=== PATIENT | female | born 1980 | race Two or more races ===

== ENCOUNTER 2025-02-19 16:29 | Inpatient (IN) | payer MEDICAID, OTHER ==
[~2025-02-19] VITALS: Ht 157.5 cm; Wt 108.3 kg
[2025-02-19] MEDS: SODIUM CHLORIDE 0.9% 1,000 ML IVB ONE (16:45)
--- NOTE | 2025-02-19 16:46 | ED.PDOC ---
GI ASSESSMENT HPI Comments 44 y/o F, with PMHx of DM presents to the ED for CC of nausea and vomiting. Patient states, that she has been experiencing nausea and vomiting with associated symptoms or headache x1week. Patient relays, that she was recently diagnosed with DM and was prescribed Jardiance; unsure if symptoms are related to new Rx. Patient denies abdominal pain, diarrhea, fever, chills, or dysuria. No other associated symptoms, modifiers, recent injuries or sick contacts present at this time. 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 Family History Family History: Unknown Social History Smoker: Non-Smoker Alcohol: Denies ETOH Use Drugs: Denies Drug Use Lives In: Home Constitutional: denies: chills, diaphoresis, fatigue, fever, malaise, sweats, weakness, others EENTM: denies: blurred vision, double vision, ear bleeding, ear discharge, ear drainage, ear pain, ear ringing, eye pain, eye redness, hearing loss, mouth pain, mouth swelling, nasal discharge, nose bleeding, nose congestion, nose pain, photophobia, tearing, throat pain, throat swelling, voice changes, others Respiratory: denies: cough, hemoptysis, orthopnea, SOB at rest, shortness of breath, SOB with excertion, stridor, wheezing, others Cardiovascular: denies: chest pain, dizzy spells, diaphoresis, Dyspnea on exertion, edema, irregular heart beat, left arm pain, lightheadedness, palpitations, PND, syncope, others Gastrointestinal: reports: nausea, vomiting; denies: abdomen distended, abdominal pain, blood streaked bowels, constipated, diarrhea, dysphagia, difficulty swallowing, hematemesis, melena, poor appetite, poor fluid intake, r ectal bleeding, rectal pain, others Genitourinary: denies: abnormal vagina bleeding, burning, dyspareunia, dysuria, flank pain, frequency, hematuria, incontinence, pain, , vagina discharge, urgency, others Neurological: denies: dizziness, fainting, headache, left sided numbness, left sided weakness, numbness, paresthesia, pre-existing deficit, right sided numbness, right sided weakness, seizure, speech problems, tingling, tremors, weakness, others Musculoskeletal: denies: back pain, gout, joint pain, joint swelling, muscle pain, muscle stiffness, neck pain, others Integumetry: denies: bruises, change in color, change in hair/nails, dryness, laceration, lesions, lumps, rash, wounds, others Allergic/Immunocompromised: denies: Difficulty Healing, Frequent Infections, Hives, Itching, others Hematologic/Lymphatic: denies: anemia, blood clots, easy bleeding, easy bruising, swollen glands, others Endocrine: denies: excessive hunger, excessive sweating, excessive thirst, excessive urination, flushing, intolerance to cold, intolerance to heat, unexplained weight gain, unexplained weight loss, others Psychiatric: denies: anxiety, bipolar disorder, depression, hopeless, panic disorder, schizophrenia, sleepless, suicidal, others All Other Systems: Reviewed and Negative Physical Exam General Appearance: Moderate Distress HEENT: Normal ENT Inspection, Pharynx Normal, TMs Normal Neck: Full Range of Motion, Non-Tender, Normal, Normal Inspection Respiratory: Chest Non-Tender, Lungs Clear, No Accessory Muscle Use, No Respiratory Distress, Normal Breath Sounds Cardiovascular: No Edema, No JVD, No Murmur, No Gallop, Normal Peripheral Pulses, Regular Rate/Rhythm Breast Exam: Deferred Gastrointestinal: No Organomegaly, Non Tender, No Pulsatile Mass, Normal Bowel Sounds, Soft Genitalia: Deferred Pelvic: Deferred Rectal: Deferred Extremities: No calf tenderness, Normal capillary refill, Normal inspection, Normal range of motion, Non-tender, No pedal edema Musculoskeletal : Apperance: Normal Neurologic: Alert, piano case maker II-XII nml as Tested, Motor Weakness, Normal Affect, Normal Mood, No Sensory Deficits Cerebellar Function: Normal Reflexes: Normal Skin: Dry, Normal Color, Warm Lymphatic: No Adenopathy Was a procedure done? Was a procedure done?: No GI differential Dx Differential Diagnosis: Gastritis/PUD, Gastroenteritis, Electrolyte Imbalance, Food Poisoning, Bacterial, Viral X-Ray, Labs, Meds, VS Lab Test 02/19/25 18:15 02/19/25 17:55 02/19/25 17:03 Range/Units Urine Color Pending Urine Clarity Pending Urine pH Pending Urine Specific [place] Pending Urine Protein Pending Urine Ketones Pending Urine Blood Pending Urine Nitrite Pending Urine Bilirubin Pending Urine Urobilinogen Pending Urine Leukocyte Esterase Pending Urine RBC Pending Urine Microscopic WBC Pending Urine Squamous Epithelial Cells Pending Urine Bacteria Pending Urine Glucose Pending POC Glucose 115 H 70-106 mg/dl White Blood Count 12.2 H 4.4-10.8 10^3/uL Red Blood Count 4.99 4.0-5.20 10^6/uL Hemoglobin 15.5 12.2-16.2 g/dL Hematocrit 46.6 H 36.0-46.0 % Mean Corpuscular Volume 93.4 80.0-100.0 fL Mean Corpuscular Hemoglobin 31.2 28.0-32.0 pg Mean Corpuscular Hemoglobin Concent 33.4 32.0-36.0 g/dL Red Cell Distribution Width 12.6 11.8-14.3 % Platelet Count 209 140-450 10^3/uL Mean Platelet Volume 9.1 6.9-10.8 fL Neutrophils (%) (Auto) 62.7 37.0-80.0 % Lymphocytes (%) (Auto) 30.1 10.0-50.0 % Monocytes (%) (Auto) 6.4 0.0-12.0 % Eosinophils (%) (Auto) 0.5 0.0-7.0 % Basophils (%) (Auto) 0.3 0.0-2.0 % Neutrophils # (Auto) 7.7 1.6-8.6 10 ^3/uL Lymphocytes # (Auto) 3.7 0.4-5.4 10 ^3/uL Monocytes # (Auto) 0.8 0-1.3 10 ^3/uL Eosinophils # (Auto) 0.1 0-0.8 10 ^3/uL Basophils # (Auto) 0 0-0.2 10 ^3/uL Nucleated Red Blood Cells 0.2 % Sodium Level 143 136-145 mmol/L Potassium Level 3.7 3.5-5.1 mmol/L Chloride Level 107 98-107 mmol/L Carbon Dioxide Level 24 20-31 mmol/L Anion Gap 12 5-15 Blood Urea Nitrogen 11 9-23 mg/dL Creatinine 0.73 0.550-1.02 mg/dL Glomerular Filtration Rate Calc 104 >90 mL/min BUN/Creatinine Ratio 15.1 10.0-20.0 Serum Glucose 128 H 74-106 mg/dL Calcium Level 10.3 8.7-10.4 mg/dL Total Bilirubin 0.6 0.2-1.0 mg/dL Aspartate Amino Transferase (AST) 67 H 13-40 U/L Alanine Aminotransferase (ALT) 136 H 7-40 U/L Alkaline Phosphatase 116 46-116 U/L Total Protein 8.8 H 5.7-8.2 g/dL Albumin 4.7 3.2-4.8 g/dL Beta-Hydroxybutyric Acid 0.899 H < 0.4 mmol/L IV Hep-Lock has been established The patient was being given a bolus of normal saline at 1 L The CBC shows an elevated white blood cell count of 12.1 The patient's chemistry panel shows hyperglycemia as well as an elevated beta hydroxybutyric acid The patient was still having intractable vomiting The patient was being admitted at this time Time of 1ST Reevaluation: 17:20 Reevaluation 1ST: Unchanged Patient Education/Counseling: Diagnosis, Treatment, Prognosis Family Education/Counseling: No Family Present Departure 1 Departure Time of Disposition: 18:32 Impression: Primary Impression: Dehydration Additional Impression: Intractable vomiting Disposition: ADMITTED INPATIENT Admit to: Med Surg Condition: Fair Critical Care Note Critical Care Time?: No Stability Stability form required: No Heart Score Heart Score: Heart Score Response (Comments) Value History N/A 0 EKG N/A 0 Age N/A 0 Risk Factors N/A 0 Troponin N/A 0 Total 0 I personally scribed for NAGA YING MD ([email or web address]) on 02/19/25 at 16:46. Electronically submitted by Astrid Howell ([email or web address]). NAGA YING MD February 19, 2025 16:46
[2025-02-19 17:17] LABS: Basophils # (auto) 0 10 ^3/uL (0-0.2); Basophils % (auto) 0.3 % (0.0-2.0); Eosinophils # (auto) 0.1 10 ^3/uL (0-0.8); Eosinophils % (auto) 0.5 % (0.0-7.0); Hematocrit 46.6 % (36.0-46.0); Hemoglobin 15.5 g/dL (12.2-16.2); Lymphocytes # (auto) 3.7 10 ^3/uL (0.4-5.4); Lymphocytes % (auto) 30.1 % (10.0-50.0); Mean Corpuscular Hemoglobin 31.2 pg (28.0-32.0); Mean Corpuscular Hgb Conc. 33.4 g/dL (32.0-36.0); Mean Corpuscular Volume 93.4 fL (80.0-100.0); Monocytes # (auto) 0.8 10 ^3/uL (0-1.3); Monocytes % (auto) 6.4 % (0.0-12.0); Neutrophils # (auto) 7.7 10 ^3/uL (1.6-8.6); Neutrophils % (auto) 62.7 % (37.0-80.0); Nucleated Red Blood Cells % 0.2 %; Platelet Count (auto) 209 10^3/uL (140-450); Red Blood Cells 4.99 10^6/uL (4.0-5.20); Red Cell Distribution Width 12.6 % (11.8-14.3); White Blood Cell 12.2 10^3/uL (4.4-10.8)
[2025-02-19 17:40] LABS: Albumin 4.7 g/dL (3.2-4.8); Alkaline Phosphatase 116 U/L (46-116); Anion Gap 12 (5-15); BUN/Creatinine Ratio 15.1 (10.0-20.0); Bilirubin, Total 0.6 mg/dL (0.2-1.0); Blood Urea Nitrogen 11 mg/dL (9-23); Calcium 10.3 mg/dL (8.7-10.4); Carbon Dioxide 24 mmol/L (20-31); Chloride 107 mmol/L (98-107); Potassium 3.7 mmol/L (3.5-5.1); Sodium 143 mmol/L (136-145)
[2025-02-19 17:45] LABS: Alanine Aminotransferase 136 U/L (7-40); Aspartate Aminotransferase 67 U/L (13-40); Glucose 128 mg/dL (74-106); Total Protein 8.8 g/dL (5.7-8.2)
[2025-02-19 18:43] LABS: Urine Bacteria FEW /hpf (None Seen); Urine Blood Negative /uL (Negative); Urine Clarity Clear (Clear); Urine Color Yellow (Yellow); Urine Mucus FEW (None Seen); Urine Protein, UAD TRACE (Negative); Urine Specific Gravity 1.042 (1.001-1.035); Urine Squamous Epithelial Cell FEW /hpf (<5); Urine Urobilinogen Normal (Negative); Urine WBC 5 /HPF (0-5)
[2025-02-19] MEDS ORDERED: DEXTROSE (50%) 50ML SYRG IV PRN (21:30)
[2025-02-19] MEDS ORDERED: DOCUSATE SOD 100 MG CAP PO PRN (21:30)
[2025-02-19] MEDS: cefTRIAXone 1GM/50ML D5W 50 ML IV ONE (21:55)
[2025-02-19] MEDS: ONDANSETRON HCL 4 MG/2 ML VIAL IV ONE (21:55)
[2025-02-19] MEDS: ACCU-CHEK COMFORT CURVE STRIP VI SCH (22:00)
[2025-02-19] MEDS: InsuLIN REG 1unit/0.01ml Soln (100units/ml) SC SCH (22:00)
[2025-02-19] MEDS: SODIUM CHLOR 0.9% PF (SALINE LOCK) 10ML VIAL/SYR IV SCH (22:05)
--- NOTE | 2025-02-19 23:28 | DVHHP2 ---
History of Present Illness Reason for Visit: Intractable nausea and vomiting History of Present Illness The patient is a 44-year-old female with past medical history of diabetes mellitus who presented to [facility] ED with complaint of intractable nausea and vomiting. Patient reports symptoms progressively get wor se with headache, currently on newly prescribed Jardiance for diabetes; unsure if symptoms are related to the new prescription. Patient was seen and evaluated in the ED, laboratory data shows WBC 12.2, platelets 209, sodium 143, potassium three point seven, BUN 11, creatinine 0.73, glucose 128, AST 67, ALT 136, beta- Hydroxybutyric Acid 0.899. Patient was started on IV antibiotic regimen Rocephin, given IV Zofran, please see medication orders section in the computer. On my assessment, patient denied chest pain, no headache, no dizziness, no diaphoresis, no shortness of breaths, no abdominal pain, no nausea or vomiting at this moment, no fever, no chills. Patient was admitted for further evaluation and medical management. Past Medical History DM Past Surgical History Denies all surgeries Family History Reviewed, noncontributory to the management of this case. Past Social History The patient lives at home, denies smoking, alcohol or illicit drugs abuse. Review of Systems Constitutional: No: Fever, Chills, Sweats, Weakness, Malaise, Other Eyes: No: Pain, Vision change, Conjunctivae inflammation, Eyelid inflammation, Other, Redness ENT: No: Ear pain, Ear discharge, Nose pain, Nose discharge, Nose congestion, Mouth pain, Mouth swelling, Throat pain, Throat swelling, Other Respiratory: No: Cough, Dry, Shortness of breath, SOB with excertion, Wheezing, Hemoptysis, Pleuritic Pain, Sputum, Wheezing, Other Cardiovascular: No: Chest Pain, Palpitations, Orthopnea, Paroxysmal Noc. Dyspnea, Edema, Lt Headedness, Other Gastrointestinal: Nausea, Vomiting; No: Abdominal Pain, Diarrhea, Constipation, Melena, Hematochezia, Other Genitourinary: No Dysuria, No Frequency, No Incontinence, No Hematuria, No Retention, No Other Musculoskeletal: No: other, neck pain, shoulder pain, arm pain, back pain, hand pain, leg pain, foot pain Skin: No: Rash, Lesions, Jaundice, Bruising, Other Neurological: No: Weakness, Numbness, Incoordination, Change in speech, Confu delilah, Seizures, Other Allergies: Coded Allergies: NO KNOWN ALLERGIES (Unverified , 02/19/25) Medications Current Medications Medications Dose Ordered Sig/Mague Route Start Time Stop Time Status Last Admin Dose Admin Ceftriaxone Sodium 50 ml @ 100 mls/hr DAILY@09 IV 02/20/25 09:00 Diagnostic Test (Pha) 1 strip ACHS 02/19/25 22:00 02/19/25 22:00 1 STRIP Insulin Human Regular ACHS SC 02/19/25 22:00 Dextrose 50 ml UD PRN IV 02/19/25 21:30 Sodium Chloride 10 ml Q8HR IV 02/19/25 22:00 02/19/25 22:05 10 ML Ondansetron HCl 4 mg Q4HP PRN IV 02/19/25 21:30 Docusate Sodium 100 mg BIDPRN PRN PO 02/19/25 21:30 Acetaminophen 650 mg Q6HP PRN PO 02/19/25 21:30 Exam Vital Signs Vital Signs Date Time Temp Pulse Resp B/P (MAP) Pulse Ox O2 Delivery O2 Flow Rate FiO2 02/19/25 18:33 97.1 57 20 100/55 (70) 100 97.1 General Appearance: Alert, Oriented X3, Cooperative, No acute distress HEENT: Atraumatic, PERRLA, EOMI, Mucous membr. moist/pink Respiratory: Clear to auscultation, Normal air movement Cardiovascular: Regular rate, Normal S1, Normal S2, No murmurs Abdominal: Normal bowel sounds, Soft, No tenderness, No hepatospenomegaly, No masses Extremities: No clubbing, No cyanosis, No edema, Normal pulses, No tenderness/swelling Skin: No rashes, No breakdown, No significant lesion Neuro: Normal gait, Normal speech, Strength at 5/5 X4 ext, Normal tone, Sensation intact, Cranial nerves 3-12 NL, Reflexes 2+ Psych/Mental Status: Mental status NL, Mood NL Labs/Xrays Labs Test 02/19/25 18:15 02/19/25 17:55 02/19/25 17:03 Range/Units Urine Color Yellow Yellow Urine Clarity Clear Clear Urine pH 5.0 5.0-9.0 Urine Specific [place] 1.042 H 1.001-1.035 Urine Protein Trace H Negative Urine Ketones 2+ H Negative Urine Blood Negative Negative /uL Urine Nitrite Negative Negative Urine Bilirubin Negative Negative Urine Urobilinogen Normal Negative mg/dL Urine Leukocyte Esterase Negative Negative /uL Urine RBC 1 0 - 4 /hpf Urine Microscopic WBC 5 0-5 /HPF Urine Squamous Epithelial Cells Few <5 /hpf Urine Bacteria Few H None Seen /hpf Urine Mucus Few None Seen Urine Glucose 4+ H Normal mg/dL POC Glucose 115 H 70-106 mg/dl White Blood Count 12.2 H 4.4-10.8 10^3/uL Red Blood Count 4.99 4.0-5.20 10^6/uL Hemoglobin 15.5 12.2-16.2 g/dL Hematocrit 46.6 H 36.0-46.0 % Mean Corpuscular Volume 93.4 80.0-100.0 fL Mean Corpuscular Hemoglobin 31.2 28.0-32.0 pg Mean Corpuscular Hemoglobin Concent 33.4 32.0-36.0 g/dL Red Cell Distribution Width 12.6 11.8-14.3 % Platelet Count 209 140-450 10^3/uL Mean Platelet Volume 9.1 6.9-10.8 fL Neutrophils (%) (Auto) 62.7 37.0-80.0 % Lymphocytes (%) (Auto) 30.1 10.0-50.0 % Monocytes (%) (Auto) 6.4 0.0-12.0 % Eosinophils (%) (Auto) 0.5 0.0-7.0 % Basophils (%) (Auto) 0.3 0.0-2.0 % Neutrophils # (Auto) 7.7 1.6-8.6 10 ^3/uL Lymphocytes # (Auto) 3.7 0.4-5.4 10 ^3/uL Monocytes # (Auto) 0.8 0-1.3 10 ^3/uL Eosinophils # (Auto) 0.1 0-0.8 10 ^3/uL Basophils # (Auto) 0 0-0.2 10 ^3/uL Nucleated Red Blood Cells 0.2 % Sodium Level 143 136-145 mmol/L Potassium Level 3.7 3.5-5.1 mmol/L Chloride Level 107 98-107 mmol/L Carbon Dioxide Level 24 20-31 mmol/L Anion Gap 12 5-15 Blood Urea Nitrogen 11 9-23 mg/dL Creatinine 0.73 0.550-1.02 mg/dL Glomerular Filtration Rate Calc 104 >90 mL/min BUN/Creatinine Ratio 15.1 10.0-20.0 Serum Glucose 128 H 74-106 mg/dL Calcium Level 10.3 8.7-10.4 mg/dL Total Bilirubin 0.6 0.2-1.0 mg/dL Aspartate Amino Transferase (AST) 67 H 13-40 U/L Alanine Aminotransferase (ALT) 136 H 7-40 U/L Alkaline Phosphatase 116 46-116 U/L Total Protein 8.8 H 5.7-8.2 g/dL Albumin 4.7 3.2-4.8 g/dL Beta-Hydroxybutyric Acid 0.899 H < 0.4 mmol/L Assessment/Plan Assessment/Plan Intractable nausea and vomiting Leukocytosis, unspecified Elevated liver enzymes Plan 1. Admit to med surge unit 2. Breathing treatment 3. Pain control management 4. IV antibiotic management 5. Management of fluids and electrolytes 6. Consultation for hospitalist 7. Diagnostic test abdomen CT 8. DVT prophylaxis on SCDs 9. Repeat labs CBC, CMP in a.m. 10. Home medication reviewed 11. Continue with current medical management 12. Treatment plan discussed with patient and RN. Patient verbalized understanding. Plan discussed with: Patient, Other (RN) My Orders Orders - TOBY LOUIE DNP Procedure Category Date Status Time Ceftriaxone 1gm/50ml PHA 02/20/25 In Process D5w (Rocephin) 09:00 Glucose Blood PHA 02/19/25 In Process (Accu-Chek Comfort 22:00 Insulin R (Human) PHA 02/19/25 In Process (Insulin R) 22:00 Dextrose 50% Syringe PHA 02/19/25 In Process 21:30 Allergies FAROOQ 02/19/25 In Process 21:27 Code Status CODE 02/19/25 Transmitted 21:27 Sodium Chloride Lock PHA 02/19/25 In Process (Saline Lock Ns) 22:00 Oxygen Per Hour RT 02/19/25 Transmitted 21:27 Ondansetron Hcl PHA 02/19/25 In Process (Zofran) 21:30 Docusate Sodium PHA 02/19/25 In Process Capsule (Colace 21:30 Complete Blood Count LAB 02/20/25 Verified 04:00 Comprehensive LAB 02/20/25 Verified Metabolic Panel 04:00 Condition: Serious FAROOQ 5/1/25 In Process 21:27 Acetaminophen Tablet PHA 02/19/25 In Process (Tylenol Tablet) 21:30 Clear Liq Diet DIET 02/20/25 Transmitted Breakfast Bedrest With Bathroom FAROOQ 02/19/25 In Process Privileg 21:27 Sequential FAROOQ 02/19/25 In Process Compression Device Problem List: (1) Intractable nausea and vomiting (2) Leukocytosis, unspecified (3) Elevated liver enzymes Date of Service: February 19, 2025 Billing Provider: TOBY LOUIE DNP Common Visit Codes: [id number] INP/OBS CARE (MOD) TOBY LOUIE DNP February 19, 2025 23:28
[2025-02-19] MEDS ORDERED: NITROGLYCERIN 0.4 MG SL TAB SL PRN (23:30)
[2025-02-19] MEDS ORDERED: MORPHINE SULFATE INJ 2 MG/ml SYRG IV PRN (23:30)
[2025-02-19] MEDS: ACETAMINOPHEN 325 MG TAB PO PRN (23:42)
[2025-02-20] VITALS (7 sets, daily range): BP systolic 92–116; BP diastolic 49–67; PULSE 53–68; RESP 16–18; TEMP 97.6–98.1; O2SAT 94–99
[2025-02-20 04:02] LABS: Basophils # (auto) 0.1 10 ^3/uL (0-0.2); Basophils % (auto) 0.5 % (0.0-2.0); Eosinophils # (auto) 0 10 ^3/uL (0-0.8); Hematocrit 41.2 % (36.0-46.0); Hemoglobin 14.1 g/dL (12.2-16.2); Lymphocytes # (auto) 2.6 10 ^3/uL (0.4-5.4); Lymphocytes % (auto) 22.5 % (10.0-50.0); Mean Corpuscular Hemoglobin 31.3 pg (28.0-32.0); Mean Corpuscular Hgb Conc. 34.3 g/dL (32.0-36.0); Mean Corpuscular Volume 91.3 fL (80.0-100.0); Monocytes # (auto) 0.6 10 ^3/uL (0-1.3); Monocytes % (auto) 5.3 % (0.0-12.0); Neutrophils # (auto) 8.4 10 ^3/uL (1.6-8.6); Neutrophils % (auto) 71.7 % (37.0-80.0); Platelet Count (auto) 218 10^3/uL (140-450); Red Blood Cells 4.52 10^6/uL (4.0-5.20); White Blood Cell 11.7 10^3/uL (4.4-10.8)
[2025-02-20 04:15] LABS: Alkaline Phosphatase 93 U/L (46-116); Anion Gap 7 (5-15); BUN/Creatinine Ratio 19.4 (10.0-20.0); Blood Urea Nitrogen 12 mg/dL (9-23); Calcium 9.8 mg/dL (8.7-10.4); Carbon Dioxide 24 mmol/L (20-31); Glucose 100 mg/dL (74-106); Potassium 4.3 mmol/L (3.5-5.1); Sodium 141 mmol/L (136-145); Total Protein 7.8 g/dL (5.7-8.2)
[2025-02-20 04:16] LABS: Albumin 4.2 g/dL (3.2-4.8); Bilirubin, Total 0.5 mg/dL (0.2-1.0)
[2025-02-20 04:19] LABS: Alanine Aminotransferase 105 U/L (7-40); Aspartate Aminotransferase 50 U/L (13-40); Chloride 110 mmol/L (98-107)
[2025-02-20] MEDS: PANTOPRAZOLE 40 MG/10 ML VIAL INJ IV ONE (06:09)
[2025-02-20] MEDS: cefTRIAXone 1GM/50ML D5W 50 ML IV SCH (09:35)
--- NOTE | 2025-02-20 11:09 | DVHPNRES ---
Progress Note Date Seen: February 20, 2025 Resident Creating Document: SUDHA JOYNER RESIDENT Medical Necessity Reason Pt with a Central, PICC or Fol: No Subjective Review of Systems Patient seen and examined at bedside Patient is complaining of nausea, vomiting Denied fever, chills, abdominal pain Regular bowel movement No any other new complaints ROS: Constitutional: Denies weight loss, fever and chills. HEENT: Denies changes in vision and hearing. Respiratory: Denies shortness of breath and cough Cardiovascular: Denies chest discomfort or palpitations GI: Complaining of nausea and vomiting : Denies dysuria and urinary frequency. Musculoskeletal: Denies myalgias and joint pain Skin: Denies rash and pruritus. Neurological: Denies dizziness, headache, vision or hearing problems Objective vital signs Vital Sign Date Time Temp Pulse Resp B/P (MAP) Pulse Ox O2 Delivery O2 Flow Rate FiO2 02/20/25 09:00 98.1 58 18 104/61 (75) 96 98.1 02/20/25 00:06 Room Air medications Current Medications Medications Dose Ordered Sig/Mague Route Start Time Stop Time Status Last Admin Dose Admin Ceftriaxone Sodium 50 ml @ 100 mls/hr DAILY@09 IV 02/20/25 09:00 02/20/25 09:35 100 MLS/HR Diagnostic Test (Pha) 1 strip ACHS 02/19/25 22:00 02/20/25 07:53 1 STRIP Insulin Human Regular ACHS SC 02/19/25 22:00 Dextrose 50 ml UD PRN IV 02/19/25 21:30 Sodium Chloride 10 ml Q8HR IV 02/19/25 22:00 02/20/25 06:26 10 ML Ondansetron HCl 4 mg Q4HP PRN IV 02/19/25 21:30 Docusate Sodium 100 mg BIDPRN PRN PO 02/19/25 21:30 Acetaminophen 650 mg Q6HP PRN PO 02/19/25 21:30 02/19/25 23:42 650 MG Nitroglycerin 0.4 mg Q5MINP PRN SL 02/19/25 23:30 Morphine Sulfate 2 mg Q30M PRN IV 02/19/25 23:30 Acetaminophen/ Hydrocodone Bitart 1 tab Q6HPRN PRN PO 02/20/25 00:15 Pantoprazole Sodium 40 mg DAILY IV 02/21/25 10:00 Sodium Chloride 1,000 ml @ 125 mls/hr Q8H IV 02/20/25 10:15 UNV Examination Physical examination Morbidly obese female, BMI 43.5 kg/m2 General: Patient alert and oriented in person, place and time. Patient following commands. HEENT: Normocephalic, atraumatic, moist mucous membranes Respiratory/pulmonary: Clear lungs bilaterally, vesicular murmurs present in almost all lung lópez, no associated crackles or wheezes. Cardiovascular: Normal heart sounds S1 and S2 with no associated murmurs Abdomen: Abdomen nondistended, there is no pain to palpation in any of the abdominal quadrants, no palpable masses. Extremities: There is no peripheral edema present at the lower extremities. Peripheral Pulses: 3+ Radial (R). 3+ Radial (L). 3+ Dorsalis pedis (R). 3+ Dorsalis pedis(L) Skin: No rashes or pruritus, there is no sacral edema present at this time. Neurological: Intact cranial nerves with no focal neurologic deficits laboratory and microbiology Laboratory Tests 02/20/25 03:30 Test 02/20/25 03:30 Range/Units Serum Glucose 100 74-106 mg/dL Labs and/or images reviewed: Labs reviewed by me, Image(s) reviewed by me Problem List/Assessment/Plan Problem List/Assessment/Plan Sepsis due to UTI Severe dehydration -IV fluid NS 125/mL/hour -IV ceftriaxone -UA showed few bacteria, high WBCs, -pending urine culture Hyperthyroidism ? Clinical versus subclinical -TSH 0.41, pending free T4 Hepatic steatosis -continue to monitor liver function -liver ultrasound showed hepatic steatosis -counseled on lifestyle modification, advised on weight loss, regular exercise, healthy diet options Diabetes mellitus type 2 HB A1c 8.9% -home medication: Jardiance 10 mg p.o. daily, hold given underlying UTI Cholelithiasis without evidence of acute cholecystitis -surgical consultation Mild right hydronephrosis -stable. Not worsening kidney function. Continue monitor Morbid obesity BMI 43.5 kg/m2 -patient counseled on lifestyle modifications such as regular exercise early started to 40 minute, healthy diet options, low-fat diet, high-protein diet, low-carbohydrate index poor. PUD Prophylaxis: Protonix DVT prophylaxis:Patient is ambulatory Goals of care discussed for 20 minutes Plan Discussed with Dr Acosta Plan discussed with: Patient, Other (RN) My Orders My Orders Orders - SUDHA JOYNER RESIDENT Procedure Category Date Status Time Drug Screen LAB 02/20/25 Logged 08:17 Test, Urine LAB 02/20/25 Logged 08:17 Sodium Chloride 0.9% PHA 02/20/25 Logged 10:15 LIVER US 02/20/25 Logged 11:03 Chest Xray 1 View XY 02/20/25 Transmitted 11:03 Hemoglobin A1c LAB 02/20/25 In Process 11:03 Thyroid Stimulating LAB 02/20/25 In Process Hormone 11:03 Lipid Panel LAB 02/20/25 In Process 11:03 Lipase LAB 02/20/25 In Process 11:03 Electrocardigram EKG 02/20/25 Logged 11:06 Lipid Panel LAB 02/20/25 Logged 11:08 Addendum Addendum Addendum I was physically present for the clay portions of the service provided to patient by THE RESIDENT. I have reviewed the documentation, discussed the case with resident and agree with the resident's documentation except as noted. Also the patient's clinical case was discussed with the patient's nurse. This medical document was created using an electronic medical record system with computerized dictation system. Although this document has been carefully reviewed, there might still be some phonetic and typographical errors. These areas are purely typographical due to imperfections of the software programs, and do not reflect any compromise in the patient's medical care. Late signature. Date of Service: February 20, 2025 Billing Provider: FRANKLIN ACOSTA MD Common Visit Codes: [id number] INP/OBS CARE(HIGH) Secondary Visit Codes: [id number] CARE PLAN 30 MINUTES (20 minutes) SUDHA JOYNER RESIDENT February 20, 2025 11:09 FRANKLIN ACOSTA MD February 21, 2025 10:31
[2025-02-20 11:35] LABS: Triglycerides 72 mg/dL (< 150)
[2025-02-20 11:36] LABS: LDL Cholesterol 86 mg/dL (< 100)
[2025-02-20 11:38] LABS: Cholesterol 133 mg/dL (< 200); HDL Cholesterol 40 mg/dL (40-59)
[2025-02-20 11:51] LABS: Lipase 31 U/L (12-53)
[2025-02-20 12:43] LABS: Amphetamine Screen, Urine Neg (NEGATIVE); Barbiturate Scree,Urine Neg (NEGATIVE); Benzodiazephine Screen, Urine Neg (NEGATIVE); Cannabinoid Screen, Urine Neg (NEGATIVE); Cocaine Screen, Urine Neg (NEGATIVE); Opiate Scree,Urine Neg (NEGATIVE); Phencyclidine Screen, Urine Neg (NEGATIVE)
--- NOTE | 2025-02-20 13:30 | DVH ---
EXAM: XY CHEST XRAY 1 VIEW Indication: n/v ;. Technique: Single frontal view of the chest was obtained Comparison: None FINDINGS: Lines and Tubes: None Lungs: No focal consolidation. Pleura: No effusion. No pneumothorax. Cardiomediastinal contours: Unremarkable Bones: No acute osseous abnormality. IMPRESSION: No acute cardiopulmonary disease.
--- NOTE | 2025-02-20 13:37 | DVH ---
INDICATION: elevated liver enyme TECHNIQUE: Multiple real-time sonographic images were obtained of the right upper quadrant and left k idney. COMPARISON: None FINDINGS: The liver demonstrates increased echotexture without focal mass lesions. The liver measures 16 cm. There is no intrahepatic or extrahepatic ductal dilatation. The common duct measures 6 mm. Gallstones.i The gallbladder wall measures 2 mm and is within normal limits. The right kidney measures 10.2 cm. The right kidney is normal in contour, size, and shape. The echog enicity is normal. Mild right hydronephrosis. There is a right renal cyst measuring up to 2.2 cm. Lef t kidney was imaged for comparison and also demonstrates left renal cysts measuring up to 1.7 cm. Lef t kidney measures 12.2 cm. The pancreas is not well visualized due to overlying bowel gas. IMPRESSION: Hepatic steatosis. Cholelithiasis without sonographic evidence of acute cholecystitis. Suggestion of mild right hydronephrosis.
[2025-02-20 15:10] LABS: Hepatitis B Surface Antigen Negative (Negative)
[2025-02-20 15:31] LABS: Hepatitis C Antibody Negative (Negative)
[2025-02-20] MEDS: ONDANSETRON HCL 4 MG/2 ML VIAL IV PRN (15:51)
[2025-02-20] MEDS: SODIUM CHLORIDE 0.9% 1,000 ML IV SCH (15:51)
[2025-02-20] MEDS: ENOXAPARIN SOD 40 MG/0.4 ML SYRINGE SC ONE (17:06)
[2025-02-20 17:58] LABS: INR 1.04 (0.9-1.15); Partial Thromboplastin Time 27.3 SEC (24.5-34.5)
[2025-02-21] VITALS (8 sets, daily range): BP systolic 96–131; BP diastolic 51–88; PULSE 51–81; RESP 16–18; TEMP 97.9–98.7; O2SAT 0–100
[2025-02-21 05:42] LABS: Basophils # (auto) 0 10 ^3/uL (0-0.2); Basophils % (auto) 0.6 % (0.0-2.0); Eosinophils # (auto) 0.1 10 ^3/uL (0-0.8); Eosinophils % (auto) 0.8 % (0.0-7.0); Hematocrit 39.9 % (36.0-46.0); Hemoglobin 13.8 g/dL (12.2-16.2); Lymphocytes # (auto) 2.4 10 ^3/uL (0.4-5.4); Lymphocytes % (auto) 30.4 % (10.0-50.0); Mean Corpuscular Hemoglobin 31.5 pg (28.0-32.0); Mean Corpuscular Hgb Conc. 34.5 g/dL (32.0-36.0); Mean Corpuscular Volume 91.3 fL (80.0-100.0); Monocytes # (auto) 0.5 10 ^3/uL (0-1.3); Monocytes % (auto) 6.9 % (0.0-12.0); Neutrophils # (auto) 4.9 10 ^3/uL (1.6-8.6); Neutrophils % (auto) 61.3 % (37.0-80.0); Platelet Count (auto) 190 10^3/uL (140-450); Red Blood Cells 4.37 10^6/uL (4.0-5.20); Red Cell Distribution Width 12.7 % (11.8-14.3)
[2025-02-21] MEDS ORDERED: EMPA1TAB PO (05:54)
[2025-02-21 05:57] LABS: Potassium 3.5 mmol/L (3.5-5.1); Sodium 142 mmol/L (136-145)
[2025-02-21 05:58] LABS: Anion Gap 9 (5-15); Calcium 9.6 mg/dL (8.7-10.4); Carbon Dioxide 25 mmol/L (20-31)
[2025-02-21 06:04] LABS: BUN/Creatinine Ratio 16.7 (10.0-20.0); Blood Urea Nitrogen 11 mg/dL (9-23)
[2025-02-21 06:12] LABS: Chloride 108 mmol/L (98-107); Glucose 107 mg/dL (74-106)
[2025-02-21] MEDS: ENOXAPARIN SOD 40 MG/0.4 ML SYRINGE SC SCH (08:57)
[2025-02-21] MEDS: PANTOPRAZOLE 40 MG/10 ML VIAL INJ IV SCH (08:57)
--- NOTE | 2025-02-21 09:33 | DVHINCON2 ---
Date of service: February 21, 2025 Reason for Consultation abdominal pain, cholelithiasis History of Present Illness History Source: Patient, MD Notes Exam Limitations: No limitations HPI 44 year old female presented to the ED for evaluation of abdominal pain. patient states she has right upper quadrant pain associated with nausea an vomiting for the past week. Home Meds Reported Medications Empagliflozin (Jardiance) 10 Mg Tab, 10 MG PO DAILY, TAB 02/21/25 Chief Complaint of Abdominal/F: Abdominal pain, Vomiting, Nausea Location of Abdominal Onset: RUQ Past Medical History Cardiac: No pertinent Hx Pulmonary: No pertinent Hx Central Nervous System: No pertinent Hx GI: No pertinent Hx Hemotology/Oncology: No pertinent Hx Hepatobiliary: No pertinent Hx Psychiatric: No pertinent Hx Musculoskeletal: No pertinent Hx Rheumotologic: No pertinent Hx Infectious Disease: No peritnent Hx ENT: No pertinent Hx Renal/: No pertinent Hx Endocrine: NIDDM Dermatology: No pertinent Hx Past Surgical History: No pertinent Hx Patient Family History: Patient reports no known family medical history. Smoker: No Hx (Negative) Alocohol: None Drugs: None Lives with: With family Review of Systems Constitutional: No symptom reported Ears, Nose, & Throat: No symptom reported Eyes: No symptom reported Pulmonary/Respiratory: No symptom reported Cardiovascular: No symptom reported Gastrointestinal: Nausea, Vomiting, Abdominal Pain Genitourinary: No symptom reported Musculoskeletal: No symptom reported Skin: No symptom reported Psychiatric: No symptom reported Endocrine: No symptom reported Hemotologic/Lymphatic: No symptom reported H&P Exam Vital Signs Vital Signs Date Time Temp Pulse Resp B/P (MAP) Pulse Ox O2 Delivery O2 Flow Rate FiO2 02/21/25 08:57 98.7 65 17 98/51 (67) 0 98.7 02/20/25 01:15 Room Air* 0 21 General Appeara: Well developed, Well nourished, Normal Appearance, Mild distress, Obese Head Exam: Normal inspection Neck Exam: Normal inspection Eye Exam: bilateral eye Normal inspection, bilateral eye PERRL Nasal Exam: Normal inspection Pulmonary/Respiratory: Normal inspection, Normal breath sounds Cardiovascular/Chest: Normal inspection, Regular rate, Normal Rhythm Abdominal Pain Onset Location: RUQ Rectal Exam: Deferred [employer] Exam: Normal speech Neuro/Mental St: Alert, Oriented Appearance: Appropriate appearance Eye contact/ Speech: Cooperative, Good eye contact, Normal speech Thoughts/Psych: Normal thought pattern Skin Exam: Normal inspection, Normal color, Warm/dry Labs/Xrays Labs Test 02/21/25 06:00 02/21/25 04:59 02/20/25 17:24 02/20/25 16:20 Range/Units POC Glucose 112 H 70-106 mg/dl White Blood Count 8.0 # 4.4-10.8 10^3/uL Red Blood Count 4.37 4.0-5.20 10^6/uL Hemoglobin 13.8 12.2-16.2 g/dL Hematocrit 39.9 36.0-46.0 % Mean Corpuscular Volume 91.3 80.0-100.0 fL Mean Corpuscular Hemoglobin 31.5 28.0-32.0 pg Mean Corpuscular Hemoglobin Concent 34.5 32.0-36.0 g/dL Red Cell Distribution Width 12.7 11.8-14.3 % Platelet Count 190 140-450 10^3/uL Mean Platelet Volume 9.3 6.9-10.8 fL Neutrophils (%) (Auto) 61.3 37.0-80.0 % Lymphocytes (%) (Auto) 30.4 10.0-50.0 % Monocytes (%) (Auto) 6.9 0.0-12.0 % Eosinophils (%) (Auto) 0.8 0.0-7.0 % Basophils (%) (Auto) 0.6 0.0-2.0 % Neutrophils # (Auto) 4.9 1.6-8.6 10 ^3/uL Lymphocytes # (Auto) 2.4 0.4-5.4 10 ^3/uL Monocytes # (Auto) 0.5 0-1.3 10 ^3/uL Eosinophils # (Auto) 0.1 0-0.8 10 ^3/uL Basophils # (Auto) 0 0-0.2 10 ^3/uL Nucleated Red Blood Cells 0.0 % Sodium Level 142 136-145 mmol/L Potassium Level 3.5 3.5-5.1 mmol/L Chloride Level 108 H 98-107 mmol/L Carbon Dioxide Level 25 20-31 mmol/L Anion Gap 9 5-15 Blood Urea Nitrogen 11 9-23 mg/dL Creatinine 0.66 0.550-1.02 mg/dL Glomerular Filtration Rate Calc 111 >90 mL/min BUN/Creatinine Ratio 16.7 10.0-20.0 Serum Glucose 107 H 74-106 mg/dL Calcium Level 9.6 8.7-10.4 mg/dL Prothrombin Time 11.0 9.3-11.8 sec Prothrombin Time INR 1.04 0.9-1.15 Activated Partial Thromboplast Time 27.3 24.5-34.5 SEC Free Thyroxine (T4) Calculated 1.02 0.89-1.76 ng/dL Test 02/20/25 14:08 02/20/25 08:22 02/20/25 03:30 02/19/25 18:15 Range/Units Hepatitis B Surface Antigen Negative Negative Hepatitis C Antibody Negative Negative Urine Test Negative Negative Urine Opiates Screen Neg NEGATIVE Urine Fentanyl Screen Neg NEGATIVE Urine Barbiturates Screen Neg NEGATIVE Urine Phencyclidine Screen Neg NEGATIVE Urine Amphetamines Screen Neg NEGATIVE Urine Benzodiazepines Screen Neg NEGATIVE Urine Cocaine Screen Neg NEGATIVE Urine Cannabinoids Screen Neg NEGATIVE Hemoglobin A1c 8.9 H <5.7 % A1C Total Bilirubin 0.5 0.2-1.0 mg/dL Aspartate Amino Transferase (AST) 50 H 13-40 U/L Alanine Aminotransferase (ALT) 105 H 7-40 U/L Alkaline Phosphatase 93 46-116 U/L Total Protein 7.8 5.7-8.2 g/dL Albumin 4.2 3.2-4.8 g/dL Triglycerides Level 72 < 150 mg/dL Cholesterol Level 133 < 200 mg/dL LDL Cholesterol 86 < 100 mg/dL HDL Cholesterol 40 40-59 mg/dL Lipase 31 12-53 U/L Thyroid Stimulating Hormone (TSH) 0.41 L 0.55-4.78 uIU/mL Urine Color Yellow Yellow Urine Clarity Clear Clear Urine pH 5.0 5.0-9.0 Urine Specific [place] 1.042 H 1.001-1.035 Urine Protein Trace H Negative Urine Ketones 2+ H Negative Urine Blood Negative Negative /uL Urine Nitrite Negative Negative Urine Bilirubin Negative Negative Urine Urobilinogen Normal Negative mg/dL Urine Leukocyte Esterase Negative Negative /uL Urine RBC 1 0 - 4 /hpf Urine Microscopic WBC 5 0-5 /HPF Urine Squamous Epithelial Cells Few <5 /hpf Urine Bacteria Few H None Seen /hpf Urine Mucus Few None Seen Urine Glucose 4+ H Normal mg/dL Test 02/19/25 17:03 Range/Units Beta-Hydroxybutyric Acid 0.899 H < 0.4 mmol/L Microbiology Date/Time Source Procedure Growth Status 02/20/25 08:22 Voided Urine Urine Culture - Preliminary Resulted Assessment/Plan Problem List: (1) Cholelithiasis (2) Obese Primary Diagnosis cholelithiasis Plan positive Henriquez sign on exam patient states pain is constant and she continues to vomit Plan: Laparoscopic possibly open cholecystectomy tomorrow am operation risks and complications explained to patient in detail patient would like to proceed with surgery Plan discussed with: Patient, Other (Dr. chowdhury) Visit Coding Surgery Date of Service if different f: February 21, 2025 Billing Provider: CLAUDIA CHOWDHURY MD Surgery Visit Codes: [id number] - INP CONSULT <80 MIN JORDAN NOLAN NP February 21, 2025 09:33
[2025-02-21] MEDS: HYDROcodone-ACET 5/325MG TAB PO PRN (14:30)
--- NOTE | 2025-02-21 18:37 | DVHPN2 ---
Subjective in bed feeling well Changes from previous H/P or p: No Changes Eyes: No Pain, No Vision change, No Conjunctivae inflammation, No Eyelid inflammation, No Other, No Redness ENT: No Ear pain, No Ear discharge, No Nose pain, No Nose discharge, No Nose congestion, No Mouth pain, No Mouth swelling, No Throat pain, No Throat swelling, No Other Cardiovascular: No Chest Pain, No Palpitations, No Orthopnea, No Paroxysmal Noc. Dyspnea, No Edema, No Lt Headedness, No Other Respiratory: No Cough, No Dry, No Shortness of breath, No SOB with excertion, No Wheezing, No Hemoptysis, No Pleuritic Pain, No Sputum, No Other Gastrointestinal: Nausea, Vomiting; No Abdominal Pain, No Diarrhea, No Constipation, No Melena, No Hematochezia, No Other Genitourinary: No Dysuria, No Frequency, No Incontinence, No Hematuria, No Retention, No Other Musculoskeletal: No other, No neck pain, No shoulder pain, No arm pain, No back pain, No hand pain, No leg pain, No foot pain Skin: No Rash, No Lesions, No Jaundice, No Bruising, No Other Objective Vitals Vital Signs Date Time Temp Pulse Resp B/P (MAP) Pulse Ox O2 Delivery O2 Flow Rate FiO2 02/21/25 16:45 98.1 51 17 102/65 (77) 95 98.1 02/21/25 08:10 Room Air* 0 21 Intake/Output Intake and Output 02/21/25 07:00 Intake Total 950 ml Balance 950 ml Intake Oral 900 ml IV Total 50 ml # Voids 4 Medications Current Medications Medications Dose Ordered Sig/Mague Route Start Time Stop Time Status Last Admin Dose Admin Ceftriaxone Sodium 50 ml @ 100 mls/hr DAILY@09 IV 02/20/25 09:00 02/21/25 08:56 100 MLS/HR Diagnostic Test (Pha) 1 strip ACHS 02/19/25 22:00 02/21/25 17:00 1 STRIP Insulin Human Regular ACHS SC 02/19/25 22:00 Dextrose 50 ml UD PRN IV 02/19/25 21:30 Sodium Chloride 10 ml Q8HR IV 02/19/25 22:00 02/21/25 14:30 10 ML Ondansetron HCl 4 mg Q4HP PRN IV 02/19/25 21:30 02/21/25 14:37 4 MG Docusate Sodium 100 mg BIDPRN PRN PO 02/19/25 21:30 Acetaminophen 650 mg Q6HP PRN PO 02/19/25 21:30 02/20/25 18:52 650 MG Nitroglycerin 0.4 mg Q5MINP PRN SL 02/19/25 23:30 Morphine Sulfate 2 mg Q30M PRN IV 02/19/25 23:30 Acetaminophen/ Hydrocodone Bitart 1 tab Q6HPRN PRN PO 02/20/25 00:15 02/21/25 14:30 1 TAB Pantoprazole Sodium 40 mg DAILY IV 02/21/25 10:00 02/21/25 08:57 40 MG Sodium Chloride 1,000 ml @ 125 mls/hr Q8H IV 02/20/25 10:15 02/21/25 18:20 125 MLS/HR Enoxaparin Sodium 40 mg DAILY SC 02/21/25 10:00 02/21/25 08:57 40 MG Laboratory Results Laboratory Tests 02/21/25 04:59 Chemistry Test 02/21/25 04:59 Calcium Level 9.6 mg/dL (8.7-10.4) Urinalysis Test 02/19/25 18:15 02/20/25 08:22 Urine Color Yellow (Yellow) Urine Clarity Clear (Clear) Urine pH 5.0 (5.0-9.0) Urine Specific [place] 1.042 (1.001-1.035) Urine Protein Trace (Negative) H Urine Ketones 2+ (Negative) H Urine Blood Negative /uL (Negative) Urine Nitrite Negative (Negative) Urine Bilirubin Negative (Negative) Urine Urobilinogen Normal mg/dL (Negative) Urine Leukocyte Esterase Negative /uL (Negative) Urine RBC 1 /hpf (0 - 4) Urine Microscopic WBC 5 /HPF (0-5) Urine Squamous Epithelial Cells Few /hpf (<5) Urine Bacteria Few /hpf (None Seen) H Urine Mucus Few (None Seen) Urine Glucose 4+ mg/dL (Normal) H Urine Test Negative (Negative) Microbiology Microbiology Date/Time Source Procedure Growth Status 02/20/25 08:22 Voided Urine Urine Culture - Preliminary Resulted Assessment/Plan Assessment/Plan Sepsis due to UTI Severe dehydration -IV fluid NS 125/mL/hour -IV ceftriaxone -UA showed few bacteria, high WBCs, -pending urine culture Hyperthyroidism ? Clinical versus subclinical -TSH 0.41, pending free T4 Hepatic steatosis -continue to monitor liver function -liver ultrasound showed hepatic steatosis -counseled on lifestyle modification, advised on weight loss, regular exercise, healthy diet options Diabetes mellitus type 2 HB A1c 8.9% -home medication: Jardiance 10 mg p.o. daily, hold given underlying UTI Cholelithiasis without evidence of acute cholecystitis -surgical consultation Going for surgery tomorrow Mild right hydronephrosis -stable. Not worsening kidney function. Continue monitor Morbid obesity BMI 43.5 kg/m2 -patient counseled on lifestyle modifications such as regular exercise early started to 40 minute, healthy diet options, low-fat diet, high-protein diet, low-carbohydrate index poor. PUD Prophylaxis: Protonix DVT prophylaxis:Patient is ambulatory Plan discussed with: Patient Date of Service: February 21, 2025 Billing Provider: ELIZABETH DWYER MD Common Visit Codes: [id number] INP/OBS CARE(HIGH) ELIZABETH DWYER MD February 21, 2025 18:36
[2025-02-22] VITALS (10 sets, daily range): BP systolic 109–137; BP diastolic 62–78; PULSE 51–79; RESP 16–22; TEMP 97.8–98.4; O2SAT 95–99
[2025-02-22] MEDS: LIDOCAINE W/ EPINEPHRINE 1% 20ML VIAL ONE (06:24)
[2025-02-22] MEDS: BUPIVACAINE HCL 0.25% P/F 10 ML VIAL ONE (06:24)
[2025-02-22] MEDS: ceFAZolin 2 GM/D5W50ml 50 ML IV ONE (06:55)
[2025-02-22] MEDS: SUCCINYLCHOLINE CHLORIDE 20 MG/ML 10ML VIAL IV ONE (06:56)
[2025-02-22] MEDS ORDERED: fentaNYL CITRATE 100 MCG/2 ML VL ONE (06:59)
[2025-02-22] MEDS ORDERED: PROPOFOL 10 MG/ML 20 ML IV ONE (06:59)
[2025-02-22] MEDS ORDERED: GLYCOPYRROLATE 0.2 MG/ML 1ML VIAL ONE (07:16)
--- NOTE | 2025-02-22 07:22 | DVHPN2 ---
Progress Note Date Seen: February 22, 2025 Medical Necessity Reason Pt with a Central, PICC or Fol: No Objective vital signs Vital Sign Date Time Temp Pulse Resp B/P (MAP) Pulse Ox O2 Delivery O2 Flow Rate FiO2 02/22/25 05:00 98.3 51 16 125/78 (94) 97 98.3 02/21/25 20:00 Room Air* 0 21 Total Intake and Output 02/21/25 02/21/25 02/22/25 15:00 23:00 07:00 Intake Total 1050 ml 600 ml 200 ml Balance 1050 ml 600 ml 200 ml medications Current Medications Medications Dose Ordered Sig/Mague Route Start Time Stop Time Status Last Admin Dose Admin Ceftriaxone Sodium 50 ml @ 100 mls/hr DAILY@09 IV 02/20/25 09:00 02/21/25 08:56 100 MLS/HR Diagnostic Test (Pha) 1 strip ACHS 02/19/25 22:00 02/22/25 05:40 1 STRIP Insulin Human Regular ACHS SC 02/19/25 22:00 Dextrose 50 ml UD PRN IV 02/19/25 21:30 Sodium Chloride 10 ml Q8HR IV 02/19/25 22:00 02/22/25 05:39 10 ML Ondansetron HCl 4 mg Q4HP PRN IV 02/19/25 21:30 02/21/25 14:37 4 MG Docusate Sodium 100 mg BIDPRN PRN PO 02/19/25 21:30 Acetaminophen 650 mg Q6HP PRN PO 02/19/25 21:30 02/21/25 21:24 650 MG Nitroglycerin 0.4 mg Q5MINP PRN SL 02/19/25 23:30 Morphine Sulfate 2 mg Q30M PRN IV 02/19/25 23:30 Acetaminophen/ Hydrocodone Bitart 1 tab Q6HPRN PRN PO 02/20/25 00:15 02/21/25 14:30 1 TAB Pantoprazole Sodium 40 mg DAILY IV 02/21/25 10:00 02/21/25 08:57 40 MG Sodium Chloride 1,000 ml @ 125 mls/hr Q8H IV 02/20/25 10:15 02/21/25 21:12 125 MLS/HR Enoxaparin Sodium 40 mg DAILY SC 02/21/25 10:00 02/21/25 08:57 40 MG laboratory and microbiology Laboratory Tests 02/21/25 04:59 Test 02/21/25 04:59 Range/Units Serum Glucose 107 H 74-106 mg/dL Problem List/Assessment/Plan Problem List/Assessment/Plan 02/22/25 PATIENT THOROUGHLY COUNSELLED IN THE PRE OP AREA, THEN TAKEN TO THE OPERATING ROOM, RECEIVED SEDATION AND WAS NOTED TO HAVE HEART RATE IN THE 30'S AND 40'S, WILL POST PONE OPERATION SHE IS NOT SEPTIC AND IS NOT IN NEED OF EN EMERGENCY OPERATION, WILL GET CARDIOLOGY CONSULT PRIOR TO ATTEMPTING OPERATION AGAIN, WILL KEEP NPO Plan discussed with: Patient, Other CLAUDIA HOWARD MD February 22, 2025 07:22
--- NOTE | 2025-02-22 09:35 | ECG ---
[facility] Test Date: 2025-02-22 Test Time: 09:34:35 Pat Name: RAZ CULLEN Department: Respiratoy Room: [address] [place] [address] 2 Gender: F Manager Cost: anthony : 1980 Requested By: LAURA GUAMAN Order Number: [id number] Reading MD: Vaibhav Gimenez Measurements Intervals [place] Rate: 52 P: 40 ME: 153 QRS: 54 QRSD: 97 T: 15 QT: 413 QTc: 384 Interpretive Statements Sinus rhythm Electronically Signed On 02-25-2025 11:48:54 PDT by Vaibhav Gimenez Please click the below link to view image of tracing.
--- NOTE | 2025-02-22 12:33 | DVHINCON2 ---
Date of service: February 22, 2025 History of Present Illness 44 F morbidly obese, poorly controlled DM alce of 9, admitted for abd pain and was planned for GB surgery. intraop pt had HR 30s and 40s per notes. pt denies a hx of cad or chf. Past Medical History reviewed Family History: Patient reports no known family medical history. Allergies: Coded Allergies: NO KNOWN ALLERGIES (Unverified , 02/19/25) Home Meds Reported Medications Empagliflozin (Jardiance) 10 Mg Tab, 10 MG PO DAILY, TAB 02/21/25 Review of Systems 10 pt ros otherwise negative Vital Signs Vital Signs Date Time Temp Pulse Resp B/P (MAP) Pulse Ox O2 Delivery O2 Flow Rate FiO2 02/22/25 09:00 98.4 61 17 137/76 (96) 97 98.4 02/22/25 08:30 Room Air* 0 21 Physical Exam nad s1 s2 rrr ctab soft nt/nd no edema Labs/Diagnostic Data Labs Test 02/22/25 11:32 02/21/25 04:59 02/20/25 17:24 02/20/25 16:20 Range/Units POC Glucose 113 H 70-106 mg/dl White Blood Count 8.0 # 4.4-10.8 10^3/uL Red Blood Count 4.37 4.0-5.20 10^6/uL Hemoglobin 13.8 12.2-16.2 g/dL Hematocrit 39.9 36.0-46.0 % Mean Corpuscular Volume 91.3 80.0-100.0 fL Mean Corpuscular Hemoglobin 31.5 28.0-32.0 pg Mean Corpuscular Hemoglobin Concent 34.5 32.0-36.0 g/dL Red Cell Distribution Width 12.7 11.8-14.3 % Platelet Count 190 140-450 10^3/uL Mean Platelet Volume 9.3 6.9-10.8 fL Neutrophils (%) (Auto) 61.3 37.0-80.0 % Lymphocytes (%) (Auto) 30.4 10.0-50.0 % Monocytes (%) (Auto) 6.9 0.0-12.0 % Eosinophils (%) (Auto) 0.8 0.0-7.0 % Basophils (%) (Auto) 0.6 0.0-2.0 % Neutrophils # (Auto) 4.9 1.6-8.6 10 ^3/uL Lymphocytes # (Auto) 2.4 0.4-5.4 10 ^3/uL Monocytes # (Auto) 0.5 0-1.3 10 ^3/uL Eosinophils # (Auto) 0.1 0-0.8 10 ^3/uL Basophils # (Auto) 0 0-0.2 10 ^3/uL Nucleated Red Blood Cells 0.0 % Sodium Level 142 136-145 mmol/L Potassium Level 3.5 3.5-5.1 mmol/L Chloride Level 108 H 98-107 mmol/L Carbon Dioxide Level 25 20-31 mmol/L Anion Gap 9 5-15 Blood Urea Nitrogen 11 9-23 mg/dL Creatinine 0.66 0.550-1.02 mg/dL Glomerular Filtration Rate Calc 111 >90 mL/min BUN/Creatinine Ratio 16.7 10.0-20.0 Serum Glucose 107 H 74-106 mg/dL Calcium Level 9.6 8.7-10.4 mg/dL Prothrombin Time 11.0 9.3-11.8 sec Prothrombin Time INR 1.04 0.9-1.15 Activated Partial Thromboplast Time 27.3 24.5-34.5 SEC Free Thyroxine (T4) Calculated 1.02 0.89-1.76 ng/dL Test 02/20/25 14:08 02/20/25 08:22 02/20/25 03:30 02/19/25 18:15 Range/Units Hepatitis B Surface Antigen Negative Negative Hepatitis C Antibody Negative Negative Urine Test Negative Negative Urine Opiates Screen Neg NEGATIVE Urine Fentanyl Screen Neg NEGATIVE Urine Barbiturates Screen Neg NEGATIVE Urine Phencyclidine Screen Neg NEGATIVE Urine Amphetamines Screen Neg NEGATIVE Urine Benzodiazepines Screen Neg NEGATIVE Urine Cocaine Screen Neg NEGATIVE Urine Cannabinoids Screen Neg NEGATIVE Hemoglobin A1c 8.9 H <5.7 % A1C Total Bilirubin 0.5 0.2-1.0 mg/dL Aspartate Amino Transferase (AST) 50 H 13-40 U/L Alanine Aminotransferase (ALT) 105 H 7-40 U/L Alkaline Phosphatase 93 46-116 U/L Total Protein 7.8 5.7-8.2 g/dL Albumin 4.2 3.2-4.8 g/dL Triglycerides Level 72 < 150 mg/dL Cholesterol Level 133 < 200 mg/dL LDL Cholesterol 86 < 100 mg/dL HDL Cholesterol 40 40-59 mg/dL Lipase 31 12-53 U/L Thyroid Stimulating Hormone (TSH) 0.41 L 0.55-4.78 uIU/mL Urine Color Yellow Yellow Urine Clarity Clear Clear Urine pH 5.0 5.0-9.0 Urine Specific [place] 1.042 H 1.001-1.035 Urine Protein Trace H Negative Urine Ketones 2+ H Negative Urine Blood Negative Negative /uL Urine Nitrite Negative Negative Urine Bilirubin Negative Negative Urine Urobilinogen Normal Negative mg/dL Urine Leukocyte Esterase Negative Negative /uL Urine RBC 1 0 - 4 /hpf Urine Microscopic WBC 5 0-5 /HPF Urine Squamous Epithelial Cells Few <5 /hpf Urine Bacteria Few H None Seen /hpf Urine Mucus Few None Seen Urine Glucose 4+ H Normal mg/dL Test 02/19/25 17:03 Range/Units Beta-Hydroxybutyric Acid 0.899 H < 0.4 mmol/L Microbiology Date/Time Source Procedure Growth Status 02/20/25 08:22 Voided Urine Urine Culture - Final Complete Assessment bradycardia obesity elevated LFTs preop eval Plan/Recommendation ecg shows SB, rate of 52, normal intervals HR 60s now on tele , pt awake no hx of cad or chf pt can achieve 4 mets, does all ADLs denies taking b p meds check echo pending echo , plan for OR tomorrow, HR likely down 2/2 sedation, underlying vern ? no cv intervention recommended at this time Plan discussed with: Patient LAURA GUAMAN MD February 22, 2025 12:33
--- NOTE | 2025-02-22 15:37 | DVHPN2 ---
Subjective in bed feeling well In pre op area became bradycardic to 30-40 Changes from previous H/P or p: No Changes Eyes: No Pain, No Vision change, No Conjunctivae inflammation, No Eyelid inflammation, No Other, No Redness ENT: No Ear pain, No Ear discharge, No Nose pain, No Nose discharge, No Nose congestion, No Mouth pain, No Mouth swelling, No Throat pain, No Throat swelling, No Other Cardiovascular: No Chest Pain, No Palpitations, No Orthopnea, No Paroxysmal Noc. Dyspnea, No Edema, No Lt Headedness, No Other Respiratory: No Cough, No Dry, No Shortness of breath, No SOB with excertion, No Wheezing, No Hemoptysis, No Pleuritic Pain, No Sputum, No Other Gastrointestinal: Nausea, Vomiting; No Abdominal Pain, No Diarrhea, No Constipation, No Melena, No Hematochezia, No Other Genitourinary: No Dysuria, No Frequency, No Incontinence, No Hematuria, No Retention, No Other Musculoskeletal: No other, No neck pain, No shoulder pain, No arm pain, No back pain, No hand pain, No leg pain, No foot pain Skin: No Rash, No Lesions, No Jaundice, No Bruising, No Other Objective Vitals Vital Signs Date Time Temp Pulse Resp B/P (MAP) Pulse Ox O2 Delivery O2 Flow Rate FiO2 02/22/25 13:00 98.4 54 18 125/72 (89) 98 98.4 02/22/25 08:30 Room Air* 0 21 Intake/Output Intake and Output 02/22/25 07:00 Intake Total 1850 ml Balance 1850 ml Intake Oral 200 ml IV Total 1650 ml # Voids 4 Medications Current Medications Medications Dose Ordered Sig/Mague Route Start Time Stop Time Status Last Admin Dose Admin Ceftriaxone Sodium 50 ml @ 100 mls/hr DAILY@09 IV 02/20/25 09:00 02/22/25 09:06 100 MLS/HR Diagnostic Test (Pha) 1 strip ACHS 02/19/25 22:00 02/22/25 11:38 1 STRIP Insulin Human Regular ACHS SC 02/19/25 22:00 Dextrose 50 ml UD PRN IV 02/19/25 21:30 Sodium Chloride 10 ml Q8HR IV 02/19/25 22:00 02/22/25 05:39 10 ML Ondansetron HCl 4 mg Q4HP PRN IV 02/19/25 21:30 02/22/25 09:21 4 MG Docusate Sodium 100 mg BIDPRN PRN PO 02/19/25 21:30 Acetaminophen 650 mg Q6HP PRN PO 02/19/25 21:30 02/21/25 21:24 650 MG Nitroglycerin 0.4 mg Q5MINP PRN SL 02/19/25 23:30 Morphine Sulfate 2 mg Q30M PRN IV 02/19/25 23:30 Acetaminophen/ Hydrocodone Bitart 1 tab Q6HPRN PRN PO 02/20/25 00:15 02/22/25 11:38 1 TAB Pantoprazole Sodium 40 mg DAILY IV 02/21/25 10:00 02/22/25 09:06 40 MG Sodium Chloride 1,000 ml @ 125 mls/hr Q8H IV 02/20/25 10:15 02/22/25 09:07 125 MLS/HR Enoxaparin Sodium 40 mg DAILY SC 02/21/25 10:00 02/21/25 08:57 40 MG Laboratory Results Laboratory Tests 02/21/25 04:59 Urinalysis Test 02/19/25 18:15 02/20/25 08:22 Urine Color Yellow (Yellow) Urine Clarity Clear (Clear) Urine pH 5.0 (5.0-9.0) Urine Specific [place] 1.042 (1.001-1.035) Urine Protein Trace (Negative) H Urine Ketones 2+ (Negative) H Urine Blood Negative /uL (Negative) Urine Nitrite Negative (Negative) Urine Bilirubin Negative (Negative) Urine Urobilinogen Normal mg/dL (Negative) Urine Leukocyte Esterase Negative /uL (Negative) Urine RBC 1 /hpf (0 - 4) Urine Microscopic WBC 5 /HPF (0-5) Urine Squamous Epithelial Cells Few /hpf (<5) Urine Bacteria Few /hpf (None Seen) H Urine Mucus Few (None Seen) Urine Glucose 4+ mg/dL (Normal) H Urine Test Negative (Negative) Microbiology Microbiology Date/Time Source Procedure Growth Status 02/20/25 08:22 Voided Urine Urine Culture - Final Complete Assessment/Plan Assessment/Plan Sepsis due to UTI Severe dehydration -IV fluid NS 125/mL/hour -IV ceftriaxone -UA showed few bacteria, high WBCs, -pending urine culture Bradycardia in preop area EKG sinus bradycardia cardiology consulted monitor telemetry Hyperthyroidism ? Clinical versus subclinical -TSH 0.41, pending free T4 Hepatic steatosis -continue to monitor liver function -liver ultrasound showed hepatic steatosis -counseled on lifestyle modification, advised on weight loss, regular exercise, healthy diet options Diabetes mellitus type 2 HB A1c 8.9% -home medication: Jardiance 10 mg p.o. daily, hold given underlying UTI Cholelithiasis without evidence of acute cholecystitis -surgical consultation Going for surgery tomorrow Mild right hydronephrosis -stable. Not worsening kidney function. Continue monitor Morbid obesity BMI 43.5 kg/m2 -patient counseled on lifestyle modifications such as regular exercise early started to 40 minute, healthy diet options, low-fat diet, high-protein diet, low-carbohydrate index poor. PUD Prophylaxis: Protonix DVT prophylaxis:Patient is ambulatory Plan discussed with: Patient Date of Service: February 22, 2025 Billing Provider: ELIZABETH DWYER MD Common Visit Codes: [id number] INP/OBS CARE(HIGH) ELIZABETH DWYER MD February 22, 2025 15:37
[2025-02-23] VITALS (10 sets, daily range): BP systolic 95–109; BP diastolic 45–74; PULSE 53–102; RESP 16–18; TEMP 98–98.9; O2SAT 96–99
[2025-02-23 07:21] LABS: INR 1.09 (0.9-1.15); Partial Thromboplastin Time 27.2 SEC (24.5-34.5); Prothrombin Time 11.5 sec (9.3-11.8)
--- NOTE | 2025-02-23 08:22 | DVHSR ---
APPROVED REPORT EXAM: Two-dimensional and M-mode echocardiogram with Doppler and color Doppler. Blood Pressure: 137/76 mmHg INDICATION Bradycardia RISK FACTORS Obesity: Height: 5' 2", Weight: 242 DIMENSIONS LVDd4.5 (3.8-5.7cm)LA (2D)3.8 (1.9-4.0cm)Aortic Root2.7 (2.0-3.7cm) LVDs3.0 (2.5-4.0cm)LA (MM) (1.9-4.0cm)Aortic Cusp Exc1.7 (1.5-2.0cm) EF (%) 62.0 (55-70%)Rt. Atrium4.2 (1.9-4.0cm)Asc. Aorta cm IVSd0.9 (0.7-1.1cm)RV (D) (1.8-2.4cm) PWd1.1 (0.7-1.1cm) Mitral Valve MitralMitral Stenosis E wave1.30m/sMV Mean GR.mmHg A wave1.00m/sMV Peak GR.mmHg E/A ratio1.32D MVAcm2 Aortic Valve Aortic ValveAortic Stenosis V10.90m/[place] Mean GR.6mmHg V21.80m/[place] Peak GR.14mmHg LVOT Diameter2.0 (1.8-2.4cm)Doppler AVA1.57cm2 Pulmonic Valve V21.00m/s Tricuspid Valve TR Velocity2.70m/s [id number] Conclusion lvef 60% normal LV function normal RV function, RV enlarged no severe valve abnormalities noted borderline biatrial enlargement normal pericardium
--- NOTE | 2025-02-23 09:20 | DVHPN2 ---
Progress Note Date Seen: February 23, 2025 Medical Necessity Reason Pt with a Central, PICC or Fol: No Subjective Patient reports: Feels better Objective vital signs Vital Sign Date Time Temp Pulse Resp B/P (MAP) Pulse Ox O2 Delivery O2 Flow Rate FiO2 02/23/25 05:00 98.5 102 18 109/74 (86) 96 98.5 02/22/25 20:00 Room Air* 0 21 Total Intake and Output 02/22/25 02/22/25 02/23/25 15:00 23:00 07:00 Intake Total 50 ml 990 ml 1250 ml Balance 50 ml 990 ml 1250 ml medications Current Medications Medications Dose Ordered Sig/Mague Route Start Time Stop Time Status Last Admin Dose Admin Ceftriaxone Sodium 50 ml @ 100 mls/hr DAILY@09 IV 02/20/25 09:00 02/23/25 08:52 100 MLS/HR Diagnostic Test (Pha) 1 strip ACHS 02/19/25 22:00 02/23/25 06:18 1 STRIP Insulin Human Regular ACHS SC 02/19/25 22:00 Dextrose 50 ml UD PRN IV 02/19/25 21:30 Sodium Chloride 10 ml Q8HR IV 02/19/25 22:00 02/23/25 06:00 10 ML Ondansetron HCl 4 mg Q4HP PRN IV 02/19/25 21:30 02/22/25 09:21 4 MG Docusate Sodium 100 mg BIDPRN PRN PO 02/19/25 21:30 Acetaminophen 650 mg Q6HP PRN PO 02/19/25 21:30 02/22/25 19:58 650 MG Nitroglycerin 0.4 mg Q5MINP PRN SL 02/19/25 23:30 Morphine Sulfate 2 mg Q30M PRN IV 02/19/25 23:30 Acetaminophen/ Hydrocodone Bitart 1 tab Q6HPRN PRN PO 02/20/25 00:15 02/22/25 16:35 1 TAB Pantoprazole Sodium 40 mg DAILY IV 02/21/25 10:00 02/22/25 09:06 40 MG Sodium Chloride 1,000 ml @ 125 mls/hr Q8H IV 02/20/25 10:15 02/23/25 02:31 125 MLS/HR Enoxaparin Sodium 40 mg DAILY SC 02/21/25 10:00 02/21/25 08:57 40 MG Examination: GENERAL:Abnormal, HEENT:Abnormal, LUNGS:Abnormal, CVS:Abnormal, ABDOMEN:Abnormal laboratory and microbiology Laboratory Tests 02/21/25 04:59 Test 02/21/25 04:59 Range/Units Serum Glucose 107 H 74-106 mg/dL Microbiology Date/Time Source Procedure Growth Status 02/20/25 08:22 Voided Urine Urine Culture - Final Complete Problem List/Assessment/Plan Problem List/Assessment/Plan preop eval bradycardia HTN obesity morbid DM HL cont current meds normal lvef on echo stable tele ok to proceed to surgery, intermediate risk Plan discussed with: Patient My Orders My Orders Orders - LAURA GUAMAN MD Procedure Category Date Status Time Echo 2d Mode Cardiac US 02/22/25 Resulted DOP 09:22 Dietary Evaluation Review Recommendations by RD: Dietary education by RD Comments: 1) If patient remains NPO > 7 days, consider EN/TPN to meet at least 75% estimated needs 2) Advance to 60g CCHO low-fat diet when medically feasible, pending RAFTSMAN approval 3) Refer to outpatient RD/[facility] for diabetes education and weight management 4) Follow-up with gastroenterology 5) Continue to monitor I&O, labs, and skin integrity Expected Outcomes/Goals: 1) Patient to receive nutrition support within 7 days of NPO status 2) labs to improve 3) diet to advance 4) f/u in 2-3 days Date of Service: February 23, 2025 Billing Provider: LAURA GUAMAN MD Common Visit Codes: NOT BILLABLE LAURA GUAMAN MD February 23, 2025 09:20
--- NOTE | 2025-02-23 10:40 | DVHPN2 ---
Progress Note Date Seen: February 23, 2025 Medical Necessity Reason Pt with a Central, PICC or Fol: No Objective vital signs Vital Sign Date Time Temp Pulse Resp B/P (MAP) Pulse Ox O2 Delivery O2 Flow Rate FiO2 02/23/25 09:00 98.9 56 16 101/54 (70) 96 98.9 02/22/25 20:00 Room Air* 0 21 Total Intake and Output 02/22/25 02/22/25 02/23/25 15:00 23:00 07:00 Intake Total 50 ml 990 ml 1250 ml Balance 50 ml 990 ml 1250 ml medications Current Medications Medications Dose Ordered Sig/Mague Route Start Time Stop Time Status Last Admin Dose Admin Ceftriaxone Sodium 50 ml @ 100 mls/hr DAILY@09 IV 02/20/25 09:00 02/23/25 08:52 100 MLS/HR Diagnostic Test (Pha) 1 strip ACHS 02/19/25 22:00 02/23/25 06:18 1 STRIP Insulin Human Regular ACHS SC 02/19/25 22:00 Dextrose 50 ml UD PRN IV 02/19/25 21:30 Sodium Chloride 10 ml Q8HR IV 02/19/25 22:00 02/23/25 06:00 10 ML Ondansetron HCl 4 mg Q4HP PRN IV 02/19/25 21:30 02/22/25 09:21 4 MG Docusate Sodium 100 mg BIDPRN PRN PO 02/19/25 21:30 Acetaminophen 650 mg Q6HP PRN PO 02/19/25 21:30 02/22/25 19:58 650 MG Nitroglycerin 0.4 mg Q5MINP PRN SL 02/19/25 23:30 Morphine Sulfate 2 mg Q30M PRN IV 02/19/25 23:30 Acetaminophen/ Hydrocodone Bitart 1 tab Q6HPRN PRN PO 02/20/25 00:15 02/22/25 16:35 1 TAB Pantoprazole Sodium 40 mg DAILY IV 02/21/25 10:00 02/22/25 09:06 40 MG Sodium Chloride 1,000 ml @ 125 mls/hr Q8H IV 02/20/25 10:15 02/23/25 10:18 125 MLS/HR Enoxaparin Sodium 40 mg DAILY SC 02/21/25 10:00 02/23/25 10:15 40 MG laboratory and microbiology Laboratory Tests 02/21/25 04:59 Test 02/21/25 04:59 Range/Units Serum Glucose 107 H 74-106 mg/dL Problem List/Assessment/Plan Problem List/Assessment/Plan 02/22/25 PATIENT THOROUGHLY COUNSELLED IN THE PRE OP AREA, THEN TAKEN TO THE OPERATING ROOM, RECEIVED SEDATION AND WAS NOTED TO HAVE HEART RATE IN THE 30'S AND 40'S, WILL POST PONE OPERATION SHE IS NOT SEPTIC AND IS NOT IN NEED OF EN EMERGENCY OPERATION, WILL GET CARDIOLOGY CONSULT PRIOR TO ATTEMPTING OPERATION AGAIN, WILL KEEP NPO 02/23/25 cleared by cardiology, will proceed tomorrow , explained to patient and family at bedside. Plan discussed with: Patient, Son, Other Dietary Evaluation Review Recommendations by RD: Dietary education by RD Comments: 1) If patient remains NPO > 7 days, consider EN/TPN to meet at least 75% estimated needs 2) Advance to 60g CCHO low-fat diet when medically feasible, pending CHASSIS INSPECTOR approval 3) Refer to outpatient RD/[facility] for diabetes education and weight management 4) Follow-up with gastroenterology 5) Continue to monitor I&O, labs, and skin integrity Expected Outcomes/Goals: 1) Patient to receive nutrition support within 7 days of NPO status 2) labs to improve 3) diet to advance 4) f/u in 2-3 days CLAUDIA HOWARD MD February 23, 2025 10:40
--- NOTE | 2025-02-23 16:11 | DVHPNRES ---
Progress Note Date Seen: February 23, 2025 Resident Creating Document: SUDHA JOYNER RESIDENT Medical Necessity Reason Pt with a Central, PICC or Fol: No Subjective Review of Systems Patient seen and examined at bedside No any other new complaints Keep NPO ROS: Constitutional: Denies weight loss, fever and chills. HEENT: Denies changes in vision and hearing. Respiratory: Denies shortness of breath and cough Cardiovascular: Denies chest discomfort or palpitations GI: Complaining of nausea and vomiting : Denies dysuria and urinary frequency. Musculoskeletal: Denies myalgias and joint pain Skin: Denies rash and pruritus. Neurological: Denies dizziness, headache, vision or hearing problems Objective vital signs Vital Sign Date Time Temp Pulse Resp B/P (MAP) Pulse Ox O2 Delivery O2 Flow Rate FiO2 02/23/25 13:00 98.4 56 16 104/59 (74) 98 98.4 02/23/25 08:00 Room Air* 0 21 Total Intake and Output 02/22/25 02/22/25 02/23/25 15:00 23:00 07:00 Intake Total 50 ml 990 ml 1250 ml Balance 50 ml 990 ml 1250 ml medications Current Medications Medications Dose Ordered Sig/Mague Route Start Time Stop Time Status Last Admin Dose Admin Ceftriaxone Sodium 50 ml @ 100 mls/hr DAILY@09 IV 02/20/25 09:00 02/23/25 08:52 100 MLS/HR Diagnostic Test (Pha) 1 strip ACHS 02/19/25 22:00 02/23/25 14:57 1 STRIP Insulin Human Regular ACHS SC 02/19/25 22:00 Dextrose 50 ml UD PRN IV 02/19/25 21:30 Sodium Chloride 10 ml Q8HR IV 02/19/25 22:00 02/23/25 14:57 10 ML Ondansetron HCl 4 mg Q4HP PRN IV 02/19/25 21:30 02/22/25 09:21 4 MG Docusate Sodium 100 mg BIDPRN PRN PO 02/19/25 21:30 Acetaminophen 650 mg Q6HP PRN PO 02/19/25 21:30 02/22/25 19:58 650 MG Nitroglycerin 0.4 mg Q5MINP PRN SL 02/19/25 23:30 Morphine Sulfate 2 mg Q30M PRN IV 02/19/25 23:30 Acetaminophen/ Hydrocodone Bitart 1 tab Q6HPRN PRN PO 02/20/25 00:15 02/23/25 15:24 1 TAB Pantoprazole Sodium 40 mg DAILY IV 02/21/25 10:00 02/22/25 09:06 40 MG Sodium Chloride 1,000 ml @ 125 mls/hr Q8H IV 02/20/25 10:15 02/23/25 10:18 125 MLS/HR Enoxaparin Sodium 40 mg DAILY SC 02/21/25 10:00 02/23/25 10:15 40 MG Examination Morbidly obese female, BMI 43.5 kg/m2 General: Patient alert and oriented in person, place and time. Patient following commands. HEENT: Normocephalic, atraumatic, moist mucous membranes Respiratory/pulmonary: Clear lungs bilaterally, vesicular murmurs present in almost all lung lópez, no associated crackles or wheezes. Cardiovascular: Normal heart sounds S1 and S2 with no associated murmurs Abdomen: Abdomen nondistended, there is no pain to palpation in any of the abdominal quadrants, no palpable masses. Extremities: There is no peripheral edema present at the lower extremities. Peripheral Pulses: 3+ Radial (R). 3+ Radial (L). 3+ Dorsalis pedis (R). 3+ Dorsalis pedis(L) Skin: No rashes or pruritus, there is no sacral edema present at this time. Neurological: Intact cranial nerves with no focal neurologic deficits laboratory and microbiology Laboratory Tests 02/21/25 04:59 Test 02/21/25 04:59 Range/Units Serum Glucose 107 H 74-106 mg/dL Microbiology Date/Time Source Procedure Growth Status 02/20/25 08:22 Voided Urine Urine Culture - Final Complete Problem List/Assessment/Plan Problem List/Assessment/Plan Sepsis due to UTI Severe dehydration -IV fluid NS 125/mL/hour -IV ceftriaxone -UA showed few bacteria, high WBCs, -pending urine culture Hyperthyroidism ? Clinical versus subclinical -TSH 0.41, pending free T4 Hepatic steatosis -continue to monitor liver function -liver ultrasound showed hepatic steatosis -counseled on lifestyle modification, advised on weight loss, regular exercise, healthy diet options Diabetes mellitus type 2 HB A1c 8.9% -home medication: Jardiance 10 mg p.o. daily, hold given underlying UTI Cholelithiasis with acute cholecystitis -surgical consultation -IV abx, -IV fluid -Plan for surgery tomorrow Mild right hydronephrosis -stable. Not worsening kidney function. Continue monitor Morbid obesity BMI 43.5 kg/m2 -patient counseled on lifestyle modifications such as regular exercise early started to 40 minute, healthy diet options, low-fat diet, high-protein diet, low-carbohydrate index poor. PUD Prophylaxis: Protonix DVT prophylaxis:Patient is ambulatory Goals of care discussed for 20 minutes Plan discussed with: Patient, Other (RN) Dietary Evaluation Review Recommendations by RD: Dietary education by RD Comments: 1) If patient remains NPO > 7 days, consider EN/TPN to meet at least 75% estimated needs 2) Advance to 60g CCHO low-fat diet when medically feasible, pending MACHINE [employer]IPPER CUTTER approval 3) Refer to outpatient RD/[facility] for diabetes education and weight management 4) Follow-up with gastroenterology 5) Continue to monitor I&O, labs, and skin integrity Expected Outcomes/Goals: 1) Patient to receive nutrition support within 7 days of NPO status 2) labs to improve 3) diet to advance 4) f/u in 2-3 days Date of Service: February 23, 2025 Billing Provider: JADE RICE DO Common Visit Codes: [id number] INP/OBS CARE(HIGH) SUDHA JOYNER RESIDENT February 23, 2025 16:11 JADE RICE DO February 23, 2025 20:36
[2025-02-24] VITALS (12 sets, daily range): BP systolic 102–118; BP diastolic 54–70; PULSE 52–72; RESP 15–19; TEMP 97.3–99; O2SAT 94–98
--- NOTE | 2025-02-24 13:14 | DVHPN2 ---
Progress Note Date Seen: February 24, 2025 Medical Necessity Reason Pt with a Central, PICC or Fol: No Objective vital signs Vital Sign Date Time Temp Pulse Resp B/P (MAP) Pulse Ox O2 Delivery O2 Flow Rate FiO2 02/24/25 13:00 98.1 52 16 118/63 (81) 98 98.1 02/24/25 08:00 Room Air* 0 21 Total Intake and Output 02/23/25 02/23/25 02/24/25 15:00 23:00 07:00 Intake Total 350 ml 900 ml 0 ml Balance 350 ml 900 ml 0 ml medications Current Medications Medications Dose Ordered Sig/Mague Route Start Time Stop Time Status Last Admin Dose Admin Ceftriaxone Sodium 50 ml @ 100 mls/hr DAILY@09 IV 02/20/25 09:00 02/24/25 09:18 100 MLS/HR Diagnostic Test (Pha) 1 strip ACHS 02/19/25 22:00 02/24/25 06:43 1 STRIP Insulin Human Regular ACHS SC 02/19/25 22:00 Dextrose 50 ml UD PRN IV 02/19/25 21:30 Sodium Chloride 10 ml Q8HR IV 02/19/25 22:00 02/24/25 05:49 10 ML Ondansetron HCl 4 mg Q4HP PRN IV 02/19/25 21:30 02/22/25 09:21 4 MG Docusate Sodium 100 mg BIDPRN PRN PO 02/19/25 21:30 Acetaminophen 650 mg Q6HP PRN PO 02/19/25 21:30 02/22/25 19:58 650 MG Nitroglycerin 0.4 mg Q5MINP PRN SL 02/19/25 23:30 Morphine Sulfate 2 mg Q30M PRN IV 02/19/25 23:30 Acetaminophen/ Hydrocodone Bitart 1 tab Q6HPRN PRN PO 02/20/25 00:15 02/23/25 15:24 1 TAB Pantoprazole Sodium 40 mg DAILY IV 02/21/25 10:00 02/24/25 09:19 40 MG Sodium Chloride 1,000 ml @ 125 mls/hr Q8H IV 02/20/25 10:15 02/24/25 02:15 125 MLS/HR Enoxaparin Sodium 40 mg DAILY SC 02/21/25 10:00 02/23/25 10:15 40 MG laboratory and microbiology Laboratory Tests 02/21/25 04:59 Test 02/21/25 04:59 Range/Units Serum Glucose 107 H 74-106 mg/dL Problem List/Assessment/Plan Problem List/Assessment/Plan 02/22/25 PATIENT THOROUGHLY COUNSELLED IN THE PRE OP AREA, THEN TAKEN TO THE OPERATING ROOM, RECEIVED SEDATION AND WAS NOTED TO HAVE HEART RATE IN THE 30'S AND 40'S, WILL POST PONE OPERATION SHE IS NOT SEPTIC AND IS NOT IN NEED OF EN EMERGENCY OPERATION, WILL GET CARDIOLOGY CONSULT PRIOR TO ATTEMPTING OPERATION AGAIN, WILL KEEP NPO 02/23/25 cleared by cardiology, will proceed tomorrow , explained to patient and family at bedside. 02/24/25 operation, risks and complications explained again in nepalese with at bedside. will proceed with operation Plan discussed with: Patient, Spouse Dietary Evaluation Review Recommendations by RD: Dietary education by RD Comments: 1) If patient remains NPO > 7 days, consider EN/TPN to meet at least 75% estimated needs 2) Advance to 60g CCHO low-fat diet when medically feasible, pending [employer]IONETTE PERFORMER approval 3) Refer to outpatient RD/[facility] for diabetes education and weight management 4) Follow-up with gastroenterology 5) Continue to monitor I&O, labs, and skin integrity Expected Outcomes/Goals: 1) Patient to receive nutrition support within 7 days of NPO status 2) labs to improve 3) diet to advance 4) f/u in 2-3 days CLAUDIA HOWARD MD February 24, 2025 13:14
[2025-02-24] MEDS: SUCCINYLCHOLINE CHLORIDE 20 MG/ML 10ML VIAL IV ONE (13:25)
[2025-02-24] MEDS ORDERED: HYDROmorphone HCL 2 MG/ML VL/or syr ONE (13:34)
[2025-02-24] MEDS ORDERED: fentaNYL CITRATE 100 MCG/2 ML VL ONE (13:34)
[2025-02-24] MEDS ORDERED: MIDAZOLAM HCL 2MG/2ML 2ml VIAL (1mg/ml) ONE (13:35)
[2025-02-24] MEDS ORDERED: MIDAZOLAM HCL 2MG/2ML 2ml VIAL (1mg/ml) IV PRN (14:00)
[2025-02-24] MEDS: ACCU-CHEK COMFORT CURVE STRIP VI ONE (14:00)
[2025-02-24] MEDS ORDERED: hydrALAZINE HCL 20 MG/ML VL IV PRN (14:00)
[2025-02-24] MEDS: METOCLOPRAMIDE HCL 5MG/ml INJ 2ml VIAL IV ONE (14:00)
[2025-02-24] MEDS ORDERED: ePHEDrine SULFATE 50 MG/ML AMP IV PRN (14:00)
[2025-02-24] MEDS: ONDANSETRON HCL 4 MG/2 ML VIAL IV ONE (14:00)
[2025-02-24] MEDS ORDERED: MORPHINE SULFATE 4 MG/ML SYR/VIAL IV PRN (14:00)
[2025-02-24] MEDS ORDERED: ONDANSETRON HCL 4 MG/2 ML VIAL ONE (14:09)
[2025-02-24] MEDS ORDERED: DexAMETHasone SOD PHOS 10MG/1ML VIAL INJ ONE (14:09)
[2025-02-24] MEDS ORDERED: PROPOFOL 10 MG/ML 20 ML IV ONE (14:09)
[2025-02-24] MEDS ORDERED: ETOMIDATE (2MG/ML) 20ML VIAL IV ONE (14:10)
[2025-02-24] MEDS ORDERED: SUGAMMADEX 200mg/2ml Vial (100MG/ML) IV ONE (14:10)
[2025-02-24] MEDS: ceFAZolin 2 GM/D5W50ml 50 ML IV ONE (14:11)
[2025-02-24] MEDS ORDERED: ONDANSETRON HCL 4 MG/2 ML VIAL IV PRN (14:30)
[2025-02-24] MEDS ORDERED: ACETAMINOPHEN/CODEINE#3 (300/30mg) TAB PO PRN (14:30)
[2025-02-24] MEDS ORDERED: HYDROmorphone HCL 2 MG/ML VL/or syr IV PRN (14:30)
[2025-02-24] MEDS: LIDOCAINE W/ EPINEPHRINE 1% 20ML VIAL ONE (14:32)
[2025-02-24] MEDS: BUPIVACAINE 0.5% P/F INJ 10 ML VIAL ONE (14:32)
[2025-02-24] MEDS: HYDROmorphone HCL 2 MG/ML VL/or syr IV PRN (15:00)
[2025-02-24] MEDS: ceFAZolin 2 GM/D5W50ml 50 ML IV SCH (15:03)
--- NOTE | 2025-02-24 15:05 | DVHOP ---
DATE OF SURGERY: 02/24/2025 PREOPERATIVE DIAGNOSES: * Cholelithiasis. * Cholecystitis. POSTOPERATIVE DIAGNOSES: * Cholelithiasis. * Cholecystitis. SURGEON: Kane Disla MD SHELTER DIRECTOR: Luis Carlos Byers NP ANESTHESIA: General endotracheal. ANESTHESIOLOGIST: Dr. Guerrero. PROCEDURE: Laparoscopy and laparoscopic cholecystectomy. DESCRIPTION OF PROCEDURE: Under general endotracheal anesthesia, with the patient's skin prepped and draped, a supraumbilical incision was made and a Veress needle inserted by the hanging drop technique to establish pneumoperitoneum to 15 mmHg pressure by insufflation with carbon dioxide. With the abdomen fully distended, the needle was removed and replaced with a 5-mm trocar port through which a 0-degree viewing laparoscope was inserted under direct vision. Additional 5 and 10-mm ports were inserted through the anterior axillary line at the level of the right lateral abdomen and a 10-mm port in the subxiphoid midline skin respectively. Instrumentation was introduced. Laparoscopy was performed. It was hampered by the patient's morbid obesity. No obvious unexpected pathology was encountered. The gallbladder was acutely inflamed and massively enlarged. It was placed on tension. The cystic duct and cystic artery were identified, circumferentially dissected, skeletonized, and traced into the hepatic or cystic triangles to minimize the potential for an inadvertent injury to the common bile duct. The cystic duct and cystic artery were then skeletonized of fat and divided between metallic clips close to the gallbladder again so as to minimize the potential for an inadvertent injury to the common bile duct. Subsequently, the gallbladder was resected from its liver bed by electrocautery and traction. The fully mobilized gallbladder was placed into the specimen extraction bag, introduced through the subxiphoid 10-mm port site and removed from the peritoneal cavity. The right upper quadrant was profusely irrigated and the irrigant was aspirated. Hemostasis was meticulously accomplished and found to be complete. At the termination of the procedure, there was no evidence of bleeding from either the port sites or from the cholecystectomy site. The patient was withdrawn. Pneumoperitoneum was evacuated. The fascial defect was closed using #0 Vicryl. Metallic skin jeffery were used for approximation of skin edges. The patient remained stable throughout the procedure, left the operating room following an accurate needle and sponge counts. Her was thoroughly informed at [phone]. MD CHERI Alcantara/NIYAH TID: [id number] RECEIPT: [id number]
--- NOTE | 2025-02-24 15:10 | DVHPNRES ---
Progress Note Date Seen: February 24, 2025 Resident Creating Document: SUDHA JOYNER RESIDENT Medical Necessity Reason Pt with a Central, PICC or Fol: No Subjective Review of Systems Patient seen and examined at bedside No any other new complaints Keep NPO Plan for lap cholecystectomy today ROS: Constitutional: Denies weight loss, fever and chills. HEENT: Denies changes in vision and hearing. Respiratory: Denies shortness of breath and cough Cardiovascular: Denies chest discomfort or palpitations GI: Complaining of nausea and vomiting : Denies dysuria and urinary frequency. Musculoskeletal: Denies myalgias and joint pain Skin: Denies rash and pruritus. Neurological: Denies dizziness, headache, vision or hearing problems Objective vital signs Vital Sign Date Time Temp Pulse Resp B/P (MAP) Pulse Ox O2 Delivery O2 Flow Rate FiO2 02/24/25 14:45 Room Air 0 97 02/24/25 14:45 97 02/24/25 13:00 98.1 52 16 118/63 (81) 98.1 Total Intake and Output 02/23/25 02/23/25 02/24/25 15:00 23:00 07:00 Intake Total 350 ml 900 ml 0 ml Balance 350 ml 900 ml 0 ml medications Current Medications Medications Dose Ordered Sig/Mague Route Start Time Stop Time Status Last Admin Dose Admin Ceftriaxone Sodium 50 ml @ 100 mls/hr DAILY@09 IV 02/20/25 09:00 02/24/25 09:18 100 MLS/HR Diagnostic Test (Pha) 1 strip ACHS 02/19/25 22:00 02/24/25 06:43 1 STRIP Insulin Human Regular ACHS SC 02/19/25 22:00 Dextrose 50 ml UD PRN IV 02/19/25 21:30 Sodium Chloride 10 ml Q8HR IV 02/19/25 22:00 02/24/25 05:49 10 ML Ondansetron HCl 4 mg Q4HP PRN IV 02/19/25 21:30 02/22/25 09:21 4 MG Docusate Sodium 100 mg BIDPRN PRN PO 02/19/25 21:30 Acetaminophen 650 mg Q6HP PRN PO 02/19/25 21:30 02/22/25 19:58 650 MG Nitroglycerin 0.4 mg Q5MINP PRN SL 02/19/25 23:30 Morphine Sulfate 2 mg Q30M PRN IV 02/19/25 23:30 Acetaminophen/ Hydrocodone Bitart 1 tab Q6HPRN PRN PO 02/20/25 00:15 02/23/25 15:24 1 TAB Pantoprazole Sodium 40 mg DAILY IV 02/21/25 10:00 02/24/25 09:19 40 MG Enoxaparin Sodium 40 mg DAILY SC 02/21/25 10:00 02/23/25 10:15 40 MG Potassium Chloride/Dextrose/ Sod Cl 1,000 ml @ 120 mls/hr Q8H20M IV 02/24/25 14:30 Cefazolin Sodium/ Dextrose 50 ml @ 50 mls/hr Q8HR IV 02/24/25 15:03 Metronidazole 100 ml @ 100 mls/hr Q8HR@0700,1500,2300 IV 02/24/25 16:00 Hydromorphone HCl 1 mg Q3HPRN PRN IV 02/24/25 14:30 Acetaminophen/ Codeine Phosphate 1 tab Q4HP PRN PO 02/24/25 14:30 Pantoprazole Sodium 40 mg DAILY IV 02/25/25 10:00 Ondansetron HCl 4 mg Q4HPRN PRN IV 02/24/25 14:30 Examination Morbidly obese female, BMI 43.5 kg/m2 General: Patient alert and oriented in person, place and time. Patient following commands. HEENT: Normocephalic, atraumatic, moist mucous membranes Respiratory/pulmonary: Clear lungs bilaterally, vesicular murmurs present in almost all lung lópez, no associated crackles or wheezes. Cardiovascular: Normal heart sounds S1 and S2 with no associated murmurs Abdomen: Abdomen nondistended, there is no pain to palpation in any of the abdominal quadrants, no palpable masses. Extremities: There is no peripheral edema present at the lower extremities. Peripheral Pulses: 3+ Radial (R). 3+ Radial (L). 3+ Dorsalis pedis (R). 3+ Dorsalis pedis(L) Skin: No rashes or pruritus, there is no sacral edema present at this time. Neurological: Intact cranial nerves with no focal neurologic deficits laboratory and microbiology Laboratory Tests 02/21/25 04:59 Test 02/21/25 04:59 Range/Units Serum Glucose 107 H 74-106 mg/dL Microbiology Date/Time Source Procedure Growth Status 02/20/25 08:22 Voided Urine Urine Culture - Final Complete Problem List/Assessment/Plan Problem List/Assessment/Plan Sepsis due to UTI Severe dehydration -IV fluid NS 125/mL/hour -IV ceftriaxone -UA showed few bacteria, high WBCs, Hyperthyroidism ? Clinical versus subclinical -TSH 0.41, pending free T4 Hepatic steatosis -continue to monitor liver function -liver ultrasound showed hepatic steatosis -counseled on lifestyle modification, advised on weight loss, regular exercise, healthy diet options Diabetes mellitus type 2 HB A1c 8.9% -home medication: Jardiance 10 mg p.o. daily, hold given underlying UTI Cholelithiasis with acute cholecystitis -surgical consultation -IV abx, -IV fluid -Plan for surgery today Mild right hydronephrosis -stable. Not worsening kidney function. Continue monitor Morbid obesity BMI 43.5 kg/m2 -patient counseled on lifestyle modifications such as regular exercise early started to 40 minute, healthy diet options, low-fat diet, high-protein diet, low-carbohydrate index poor. PUD Prophylaxis: Protonix DVT prophylaxis:Patient is ambulatory Goals of care discussed for 20 minutes Plan discussed with: Patient, Other Dietary Evaluation Review Recommendations by RD: Dietary education by RD Comments: 1) If patient remains NPO > 7 days, consider EN/TPN to meet at least 75% estimated needs 2) Advance to 60g CCHO low-fat diet when medically feasible, pending [employer]SOLE [employer] PULLER HAND approval 3) Refer to outpatient RD/[facility] for diabetes education and weight management 4) Follow-up with gastroenterology 5) Continue to monitor I&O, labs, and skin integrity Expected Outcomes/Goals: 1) Patient to receive nutrition support within 7 days of NPO status 2) labs to improve 3) diet to advance 4) f/u in 2-3 days Date of Service: February 24, 2025 Billing Provider: FLORENTIN PANIAGUA MD Common Visit Codes: [id number] INP/OBS CARE(HIGH) SUDHA JOYNER RESIDENT February 24, 2025 15:10 FLORENTIN PANIAGUA MD February 25, 2025 08:36
[2025-02-24] MEDS: metroNIDAZOLE 500MG/100ML 100 ML IV SCH (17:22)
[2025-02-24 17:51] LABS: Albumin 4.1 g/dL (3.2-4.8); Alkaline Phosphatase 95 U/L (46-116); Anion Gap 11 (5-15); BUN/Creatinine Ratio 15.5 (10.0-20.0); Blood Urea Nitrogen 9 mg/dL (9-23); Calcium 9.3 mg/dL (8.7-10.4); Carbon Dioxide 23 mmol/L (20-31); Potassium 3.6 mmol/L (3.5-5.1); Sodium 142 mmol/L (136-145); Total Protein 7.5 g/dL (5.7-8.2)
[2025-02-24 17:52] LABS: Bilirubin, Total 0.5 mg/dL (0.2-1.0)
[2025-02-24 18:07] LABS: Alanine Aminotransferase 81 U/L (7-40); Aspartate Aminotransferase 60 U/L (13-40); Chloride 108 mmol/L (98-107); Glucose 124 mg/dL (74-106)
[2025-02-24] MEDS: D5W/SOD CHL 0.45%/KCL 20MEQ 1,000 ML IV SCH (18:44)
[2025-02-25] VITALS (7 sets, daily range): BP systolic 109–126; BP diastolic 61–72; PULSE 54–60; RESP 16–20; TEMP 97.2–98.2; O2SAT 95–98
[2025-02-25 07:45] LABS: Basophils # (auto) 0 10 ^3/uL (0-0.2); Basophils % (auto) 0.1 % (0.0-2.0); Eosinophils # (auto) 0 10 ^3/uL (0-0.8); Hematocrit 37.5 % (36.0-46.0); Hemoglobin 13.4 g/dL (12.2-16.2); Lymphocytes # (auto) 1.2 10 ^3/uL (0.4-5.4); Lymphocytes % (auto) 13.1 % (10.0-50.0); Mean Corpuscular Hgb Conc. 35.6 g/dL (32.0-36.0); Mean Corpuscular Volume 89.8 fL (80.0-100.0); Monocytes # (auto) 0.5 10 ^3/uL (0-1.3); Monocytes % (auto) 5.3 % (0.0-12.0); Neutrophils # (auto) 7.7 10 ^3/uL (1.6-8.6); Neutrophils % (auto) 81.5 % (37.0-80.0); Nucleated Red Blood Cells % 0.1 %; Platelet Count (auto) 166 10^3/uL (140-450); Red Blood Cells 4.18 10^6/uL (4.0-5.20); Red Cell Distribution Width 12.3 % (11.8-14.3); White Blood Cell 9.4 10^3/uL (4.4-10.8)
[2025-02-25 07:53] LABS: Magnesium 1.8 mg/dL (1.6-2.6)
[2025-02-25 07:54] LABS: Bilirubin, Total 0.5 mg/dL (0.2-1.0)
[2025-02-25] MEDS ORDERED: PANTOPRAZOLE 40 MG/10 ML VIAL INJ IV SCH (10:00)
--- NOTE | 2025-02-25 10:00 | DVHPN2 ---
Progress Note Date Seen: February 25, 2025 Medical Necessity Reason Pt with a Central, PICC or Fol: No Objective vital signs Vital Sign Date Time Temp Pulse Resp B/P (MAP) Pulse Ox O2 Delivery O2 Flow Rate FiO2 02/25/25 09:00 98.2 56 18 126/72 (90) 98 98.2 02/24/25 20:00 Room Air* 0 21 Total Intake and Output 02/24/25 02/24/25 02/25/25 15:00 23:00 07:00 Intake Total 150 ml 150 ml 845 ml Balance 150 ml 150 ml 845 ml medications Current Medications Medications Dose Ordered Sig/Mague Route Start Time Stop Time Status Last Admin Dose Admin Diagnostic Test (Pha) 1 strip ACHS 02/19/25 22:00 02/25/25 06:11 1 STRIP Insulin Human Regular ACHS SC 02/19/25 22:00 02/25/25 06:19 2 UNITS Dextrose 50 ml UD PRN IV 02/19/25 21:30 Sodium Chloride 10 ml Q8HR IV 02/19/25 22:00 02/25/25 06:14 10 ML Docusate Sodium 100 mg BIDPRN PRN PO 02/19/25 21:30 Acetaminophen 650 mg Q6HP PRN PO 02/19/25 21:30 02/22/25 19:58 650 MG Nitroglycerin 0.4 mg Q5MINP PRN SL 02/19/25 23:30 Morphine Sulfate 2 mg Q30M PRN IV 02/19/25 23:30 Acetaminophen/ Hydrocodone Bitart 1 tab Q6HPRN PRN PO 02/20/25 00:15 02/23/25 15:24 1 TAB Pantoprazole Sodium 40 mg DAILY IV 02/21/25 10:00 02/25/25 09:50 40 MG Enoxaparin Sodium 40 mg DAILY SC 02/21/25 10:00 02/23/25 10:15 40 MG Potassium Chloride/Dextrose/ Sod Cl 1,000 ml @ 120 mls/hr Q8H20M IV 02/24/25 14:30 02/25/25 06:16 120 MLS/HR Cefazolin Sodium/ Dextrose 50 ml @ 50 mls/hr Q8HR IV 02/24/25 15:03 02/25/25 06:11 50 MLS/HR Metronidazole 100 ml @ 100 mls/hr Q8HR@0700,1500,2300 IV 02/24/25 16:00 02/25/25 07:23 100 MLS/HR Hydromorphone HCl 1 mg Q3HPRN PRN IV 02/24/25 14:30 Ondansetron HCl 4 mg Q4HPRN PRN IV 02/24/25 14:30 laboratory and microbiology Laboratory Tests 02/25/25 06:37 02/24/25 17:23 Test 02/24/25 17:23 Range/Units Serum Glucose 124 H 74-106 mg/dL Problem List/Assessment/Plan Problem List/Assessment/Plan 02/22/25 PATIENT THOROUGHLY COUNSELLED IN THE PRE OP AREA, THEN TAKEN TO THE OPERATING ROOM, RECEIVED SEDATION AND WAS NOTED TO HAVE HEART RATE IN THE 30'S AND 40'S, WILL POST PONE OPERATION SHE IS NOT SEPTIC AND IS NOT IN NEED OF EN EMERGENCY OPERATION, WILL GET CARDIOLOGY CONSULT PRIOR TO ATTEMPTING OPERATION AGAIN, WILL KEEP NPO 02/23/25 cleared by cardiology, will proceed tomorrow , explained to patient and family at bedside. 02/24/25 operation, risks and complications explained again in yi with at bedside. will proceed with operation 02/25/25 doing well, wounds ok, clean and well approximated, abdomen soft, non distended, appropriately tender, bilirubin nl, CBC sable, advance diet, cleared for discharge, may shower after 72 hours, return to see me in two weeks Plan discussed with: Patient, Spouse Dietary Evaluation Review Recommendations by RD: Dietary education by RD Comments: 1) If patient remains NPO > 7 days, consider EN/TPN to meet at least 75% estimated needs 2) Advance to 60g CCHO low-fat diet when medically feasible, pending [employer] approval 3) Refer to outpatient RD/CD[facility] for diabetes education and weight management 4) Follow-up with gastroenterology 5) Continue to monitor I&O, labs, and skin integrity Expected Outcomes/Goals: 1) Patient to receive nutrition support within 7 days of NPO status 2) labs to improve 3) diet to advance 4) f/u in 2-3 days CLAUDIA HOWARD MD February 25, 2025 10:00
--- NOTE | 2025-02-25 18:55 | DVHPNRES ---
Progress Note Date Seen: February 25, 2025 Resident Creating Document: SUDHA OJYNER RESIDENT Medical Necessity Reason Pt with a Central, PICC or Fol: No Subjective Review of Systems Patient seen and examined at bedside No any other new complaints S/P lap nida tolerating clear liquid diet ROS: Constitutional: Denies weight loss, fever and chills. HEENT: Denies changes in vision and hearing. Respiratory: Denies shortness of breath and cough Cardiovascular: Denies chest discomfort or palpitations GI: Complaining of nausea and vomiting : Denies dysuria and urinary frequency. Musculoskeletal: Denies myalgias and joint pain Skin: Denies rash and pruritus. Neurological: Denies dizziness, headache, vision or hearing problems Objective vital signs Vital Sign Date Time Temp Pulse Resp B/P (MAP) Pulse Ox O2 Delivery O2 Flow Rate FiO2 02/25/25 17:10 98.0 57 20 119/68 (85) 97 98.0 02/25/25 08:00 Room Air* 0 21 Total Intake and Output 02/24/25 02/24/25 02/25/25 15:00 23:00 07:00 Intake Total 150 ml 150 ml 845 ml Balance 150 ml 150 ml 845 ml medications Current Medications Medications Dose Ordered Sig/Mague Route Start Time Stop Time Status Last Admin Dose Admin Diagnostic Test (Pha) 1 strip ACHS 02/19/25 22:00 02/25/25 17:00 1 STRIP Insulin Human Regular ACHS SC 02/19/25 22:00 02/25/25 12:33 2 UNITS Dextrose 50 ml UD PRN IV 02/19/25 21:30 Sodium Chloride 10 ml Q8HR IV 02/19/25 22:00 02/25/25 14:00 10 ML Docusate Sodium 100 mg BIDPRN PRN PO 02/19/25 21:30 Acetaminophen 650 mg Q6HP PRN PO 02/19/25 21:30 02/22/25 19:58 650 MG Nitroglycerin 0.4 mg Q5MINP PRN SL 02/19/25 23:30 Morphine Sulfate 2 mg Q30M PRN IV 02/19/25 23:30 Acetaminophen/ Hydrocodone Bitart 1 tab Q6HPRN PRN PO 02/20/25 00:15 02/23/25 15:24 1 TAB Pantoprazole Sodium 40 mg DAILY IV 02/21/25 10:00 02/25/25 09:50 40 MG Enoxaparin Sodium 40 mg DAILY SC 02/21/25 10:00 02/23/25 10:15 40 MG Potassium Chloride/Dextrose/ Sod Cl 1,000 ml @ 120 mls/hr Q8H20M IV 02/24/25 14:30 02/25/25 06:16 120 MLS/HR Cefazolin Sodium/ Dextrose 50 ml @ 50 mls/hr Q8HR IV 02/24/25 15:03 02/25/25 14:00 50 MLS/HR Metronidazole 100 ml @ 100 mls/hr Q8HR@0700,1500,2300 IV 02/24/25 16:00 02/25/25 07:23 100 MLS/HR Hydromorphone HCl 1 mg Q3HPRN PRN IV 02/24/25 14:30 Ondansetron HCl 4 mg Q4HPRN PRN IV 02/24/25 14:30 Examination Morbidly obese female, BMI 43.5 kg/m2 General: Patient alert and oriented in person, place and time. Patient following commands. HEENT: Normocephalic, atraumatic, moist mucous membranes Respiratory/pulmonary: Clear lungs bilaterally, vesicular murmurs present in almost all lung lópez, no associated crackles or wheezes. Cardiovascular: Normal heart sounds S1 and S2 with no associated murmurs Abdomen: Abdomen nondistended, there is no pain to palpation in any of the abdominal quadrants, no palpable masses. Extremities: There is no peripheral edema present at the lower extremities. Peripheral Pulses: 3+ Radial (R). 3+ Radial (L). 3+ Dorsalis pedis (R). 3+ Dorsalis pedis(L) Skin: No rashes or pruritus, there is no sacral edema present at this time. Neurological: Intact cranial nerves with no focal neurologic deficits laboratory and microbiology Laboratory Tests 02/25/25 06:37 02/24/25 17:23 Test 02/24/25 17:23 Range/Units Serum Glucose 124 H 74-106 mg/dL Microbiology Date/Time Source Procedure Growth Status 02/20/25 08:22 Voided Urine Urine Culture - Final Complete Problem List/Assessment/Plan Problem List/Assessment/Plan Sepsis due to UTI Severe dehydration -IV fluid NS 125/mL/hour -IV ceftriaxone -UA showed few bacteria, high WBCs, Hyperthyroidism ? Clinical versus subclinical -TSH 0.41, pending free T4 Hepatic steatosis -continue to monitor liver function -liver ultrasound showed hepatic steatosis -counseled on lifestyle modification, advised on weight loss, regular exercise, healthy diet options Diabetes mellitus type 2 HB A1c 8.9% -home medication: Jardiance 10 mg p.o. daily, hold given underlying UTI Cholelithiasis with acute cholecystitis S/P cholecystectomy -surgical consultation -IV abx, -IV fluid Mild right hydronephrosis -stable. Not worsening kidney function. Continue monitor Morbid obesity BMI 43.5 kg/m2 -patient counseled on lifestyle modifications such as regular exercise early started to 40 minute, healthy diet options, low-fat diet, high-protein diet, low-carbohydrate index poor. PUD Prophylaxis: Protonix DVT prophylaxis:Patient is ambulatory Goals of care discussed for 20 minutes Plan discussed with: Patient, Other (RN) Dietary Evaluation Review Recommendations by RD: Dietary education by RD Comments: 1) If patient remains NPO > 7 days, consider EN/TPN to meet at least 75% estimated needs 2) Advance to 60g CCHO low-fat diet when medically feasible, pending [employer] approval 3) Refer to outpatient RD/[facility] for diabetes education and weight management 4) Follow-up with gastroenterology 5) Continue to monitor I&O, labs, and skin integrity Expected Outcomes/Goals: 1) Patient to receive nutrition support within 7 days of NPO status 2) labs to improve 3) diet to advance 4) f/u in 2-3 days Date of Service: February 25, 2025 Billing Provider: FLORENTIN PANIAGUA MD Common Visit Codes: [id number] INP/OBS CARE(HIGH) SUDHA JOYNER RESIDENT February 25, 2025 18:55 FLORENTIN PANIAGUA MD February 28, 2025 15:31
[2025-02-26 01:00] VITALS: BP 97/49; PULSE 60; RESP 19; TEMP 97.6; O2SAT 96
[2025-02-26 05:00] VITALS: BP 99/56; PULSE 52; RESP 19; TEMP 97.9; O2SAT 95
[2025-02-26 08:00] VITALS: PULSE 49
[2025-02-26 09:00] VITALS: BP 103/60; PULSE 74; RESP 17; TEMP 98; O2SAT 94
[2025-02-26] MEDS ORDERED: LEVO750T40 PO (10:04)
[2025-02-26] MEDS ORDERED: METR-344 PO (10:04)
[2025-02-26 11:46] LABS: Alkaline Phosphatase 78 U/L (46-116); Anion Gap 9 (5-15); BUN/Creatinine Ratio 14.9 (10.0-20.0); Blood Urea Nitrogen 11 mg/dL (9-23); Calcium 9.3 mg/dL (8.7-10.4); Carbon Dioxide 25 mmol/L (20-31); Total Protein 6.5 g/dL (5.7-8.2)
[2025-02-26 11:47] LABS: Albumin 3.5 g/dL (3.2-4.8); Aspartate Aminotransferase 27 U/L (13-40); Bilirubin, Total 0.4 mg/dL (0.2-1.0)
[2025-02-26 11:48] LABS: Alanine Aminotransferase 50 U/L (7-40); Chloride 111 mmol/L (98-107); Glucose 125 mg/dL (74-106); Potassium 3.2 mmol/L (3.5-5.1); Sodium 145 mmol/L (136-145)
[2025-02-26] MEDS ORDERED: POTA-36 PO (18:38)
--- NOTE | 2025-02-26 18:44 | DVHDSRES ---
Discharge Summary Date of Admission Resident Creating Document: SUDHA JOYNER RESIDENT February 19, 2025 at 23:27 Date of Discharge: February 26, 2025 Admitting Diagnosis abdominal pain Labs/Diagnostic Data: Laboratory Results Test 02/26/25 11:14 02/26/25 05:34 02/25/25 06:37 02/23/25 06:00 Sodium Level 145 mmol/L (136-145) Potassium Level 3.2 mmol/L (3.5-5.1) Chloride Level 111 mmol/L (98-107) Carbon Dioxide Level 25 mmol/L (20-31) Anion Gap 9 (5-15) Blood Urea Nitrogen 11 mg/dL (9-23) Creatinine 0.74 mg/dL (0.550-1.02) Glomerular Filtration Rate Calc 102 mL/min (>90) BUN/Creatinine Ratio 14.9 (10.0-20.0) Serum Glucose 125 mg/dL (74-106) Calcium Level 9.3 mg/dL (8.7-10.4) Total Bilirubin 0.4 mg/dL (0.2-1.0) Aspartate Amino Transferase (AST) 27 U/L (13-40) Alanine Aminotransferase (ALT) 50 U/L (7-40) Alkaline Phosphatase 78 U/L (46-116) Total Protein 6.5 g/dL (5.7-8.2) Albumin 3.5 g/dL (3.2-4.8) POC Glucose 129 mg/dl (70-106) White Blood Count 9.4 10^3/uL (4.4-10.8) Red Blood Count 4.18 10^6/uL (4.0-5.20) Hemoglobin 13.4 g/dL (12.2-16.2) Hematocrit 37.5 % (36.0-46.0) Mean Corpuscular Volume 89.8 fL (80.0-100.0) Mean Corpuscular Hemoglobin 32.0 pg (28.0-32.0) Mean Corpuscular Hemoglobin Concent 35.6 g/dL (32.0-36.0) Red Cell Distribution Width 12.3 % (11.8-14.3) Platelet Count 166 10^3/uL (140-450) Mean Platelet Volume 9.6 fL (6.9-10.8) Neutrophils (%) (Auto) 81.5 % (37.0-80.0) Lymphocytes (%) (Auto) 13.1 % (10.0-50.0) Monocytes (%) (Auto) 5.3 % (0.0-12.0) Eosinophils (%) (Auto) 0.0 % (0.0-7.0) Basophils (%) (Auto) 0.1 % (0.0-2.0) Neutrophils # (Auto) 7.7 10 ^3/uL (1.6-8.6) Lymphocytes # (Auto) 1.2 10 ^3/uL (0.4-5.4) Monocytes # (Auto) 0.5 10 ^3/uL (0-1.3) Eosinophils # (Auto) 0 10 ^3/uL (0-0.8) Basophils # (Auto) 0 10 ^3/uL (0-0.2) Nucleated Red Blood Cells 0.1 % Magnesium Level 1.8 mg/dL (1.6-2.6) Prothrombin Time 11.5 sec (9.3-11.8) Prothrombin Time INR 1.09 (0.9-1.15) Activated Partial Thromboplast Time 27.2 SEC (24.5-34.5) Test 02/20/25 16:20 02/20/25 14:08 02/20/25 08:22 02/20/25 03:30 Free Thyroxine (T4) Calculated 1.02 ng/dL (0.89-1.76) Hepatitis B Surface Antigen Negative (Negative) Hepatitis C Antibody Negative (Negative) Urine Test Negative (Negative) Urine Opiates Screen Neg (NEGATIVE) Urine Fentanyl Screen Neg (NEGATIVE) Urine Barbiturates Screen Neg (NEGATIVE) Urine Phencyclidine Screen Neg (NEGATIVE) Urine Amphetamines Screen Neg (NEGATIVE) Urine Benzodiazepines Screen Neg (NEGATIVE) Urine Cocaine Screen Neg (NEGATIVE) Urine Cannabinoids Screen Neg (NEGATIVE) Hemoglobin A1c 8.9 % A1C (<5.7) Triglycerides Level 72 mg/dL (< 150) Cholesterol Level 133 mg/dL (< 200) LDL Cholesterol 86 mg/dL (< 100) HDL Cholesterol 40 mg/dL (40-59) Lipase 31 U/L (12-53) Thyroid Stimulating Hormone (TSH) 0.41 uIU/mL (0.55-4.78) Test 02/19/25 18:15 5/1/25 17:03 Urine Color Yellow (Yellow) Urine Clarity Clear (Clear) Urine pH 5.0 (5.0-9.0) Urine Specific [place] 1.042 (1.001-1.035) Urine Protein Trace (Negative) Urine Ketones 2+ (Negative) Urine Blood Negative /uL (Negative) Urine Nitrite Negative (Negative) Urine Bilirubin Negative (Negative) Urine Urobilinogen Normal mg/dL (Negative) Urine Leukocyte Esterase Negative /uL (Negative) Urine RBC 1 /hpf (0 - 4) Urine Microscopic WBC 5 /HPF (0-5) Urine Squamous Epithelial Cells Few /hpf (<5) Urine Bacteria Few /hpf (None Seen) Urine Mucus Few (None Seen) Urine Glucose 4+ mg/dL (Normal) Beta-Hydroxybutyric Acid 0.899 mmol/L (< 0.4) Other Laboratory Tests 02/26/25 11:14 02/25/25 06:37 Brief Hx & Hospital Course: Patient is a 44-year-old female with past medical history of diabetes mellitus came to the hospital with a chief complaint of epigastric pain, right upper quadrant abdominal pain, worsening nausea and vomiting associated with diet. Patient was initiated on IV antibiotics and IV fluid. Patient underwent liver ultrasound which showed hepatosteatosis, cholelithiasis, patient had Henriquez sign positive however did not show any signs in ultrasound. Continued with IV antibiotic, IV fluid. Surgery consultation was done. Patient underwent laparoscopic cholecystectomy, found to have inflamed gallbladder. Treated with IV antibiotic, post procedure, initiated diet, tolerated diet, had bowel movement, no fever, no chills. Given patient is stable, patient will be discharged home with oral antibiotic levofloxacin and metronidazole and advised to follow with primary care physician within one week. Patient also advised to follow with surgeon in two weeks. Advised to not take shower in 72 hours, initially take clear liquid diet, advanced as toleration. Patient agreed with discharge plan, patient has been discharged to home. Condition at Discharge: Stable Final Diagnosis/Problems List Cholelithiasis with acute cholecystitis Sepsis due to UTI and acute cholecystitis Severe dehydration Subclinical hyperthyroidism Hepatic steatosis Diabetes mellitus type 2 HB A1c 8.9% Mild right hydronephrosis Morbid obesity BMI 43.5 kg/m2 mild right hydronephrosis. Follow up outpatient Discharge Disposition: Home Discharge Instruct/Medications Diet: Regular Activity: No Restrictions, As Tolerated Follow Up/Referral: -Follow up with pcp in 2 week -[facility] in one [facility] Medications: -see prescription Discharge Statement: "Patient was advised to return to the ER or call 911 if any headaches, dizziness, shortness of breath, chest pain, abdominal pain, bleeding, fevers, or worsening of medical condition. Patient was counseled about treatment plan, medications, possible side effects, patient�verbalized understanding. All questions were answered to the best of my ability. This discharge took greater then 30 minutes in planning, reviewing documentation, counseling the patient, and discussing with other team members." ASSESSMENT ASSESSMENT Assessment acute cholecystitis status post cholecystecromy hepatic steatosis Date of Service: February 26, 2025 Billing Provider: FLORENTIN PANIAGUA MD Common Visit Codes: 84690-UKJ/[id number] DISCH DAY >30min SUDHA JOYNER RESIDENT February 26, 2025 18:44 FLORETNIN PANIAGUA MD February 28, 2025 15:37
[2025-02-26] MEDS ORDERED: NITR-87 PO (20:16)
[2025-02-26] MEDS ORDERED: ZOFR4T PO (20:16)
== END 2025-02-26 12:53 | disposition home or self-care (01) | DRG 710 ==
LOC: ER 16:29 → OVERFLOW 23:27 → EAST 02-20 20:49 → TELE-EAST 02-22 07:44
PROVIDERS: ADMIT Student in an Organized Health Care Education/Training Program; ATTEND Student in an Organized Health Care Education/Training Program
PROC: 0FT44ZZ Resection of Gallbladder, Percutaneous Endoscopic Approach (ICD-10-PCS; principal; 2025-02-24 13:35)
DX: A41.9 Sepsis, unspecified organism (principal); K80.00 Calculus of gallbladder with acute cholecystitis without obstruction; K76.0 Fatty (change of) liver, not elsewhere classified; E11.9 Type 2 diabetes mellitus without complications; N13.6 Pyonephrosis; E66.01 Morbid (severe) obesity due to excess calories; E86.0 Dehydration; E05.80 Other thyrotoxicosis without thyrotoxic crisis or storm; Z68.41 Body mass index [BMI] 40.0-44.9, adult; Z79.84 Long term (current) use of oral hypoglycemic drugs; Z79.899 Other long term (current) drug therapy
CPT/HCPCS: 36415; 71045; 76705; 80048; 80053; 80061; 80307; 81001; 81025; 82010; 82247; 82962; 83036; 83690; 83735; 84439; 84443; 85025; 85610; 85730; 86803; 86850; 86900; 86901; 87086; 87340; 93005; 93306; 96361; 96365; 96375; G0378; J0330; J1100; J1815; J2250; J2405; J2470; J2704; J3490

== ENCOUNTER 2025-02-26 15:19 | Emergency (ER) | payer MEDICAID ==
[~2025-02-26 15:19] MED LIST: EMPA1TAB PO; LEVO750T40 PO; METR-344 PO
[2025-02-26] MEDS: ONDANSETRON ODT 4 MG TAB PO ONE (15:56)
[2025-02-26 15:58] VITALS: PULSE 56; RESP 16; O2SAT 96
--- NOTE | 2025-02-26 16:36 | ED.PDOC ---
GI ASSESSMENT HPI Comments 44 y/o F, with PMHx of DM presents to the ED for CC of dizziness. Patient states, that she has been experiencing symptoms of dizziness onset, today (02/26/25). Patient reports, that she was discharged from [facility] today (02/26/25) for Dx:Dehydration; relays symptoms starting shortly there after. Patient comments, undergoing a cholecystectomy while admitted and is unsure if symptoms are related. No other symptoms or modifying factors present at this time. Chief Complaint: Nausea/Vomiting Time Seen by MD: 16:05 Primary Care Provider: UNKNOWN Reviewed Notes: Nurses Notes, Medications, Allergies Allergies: Coded Allergies: NO KNOWN ALLERGIES (Unverified , 02/19/25) Home Meds Active Scripts Potassium Chloride (POTASSIUM CHLORIDE CR) 10 Meq Tb, 1 TAB PO DAILY for 5 Days, #5 TAB 5 Refills Prov:SUDHA JOYNER RESIDENT 02/26/25 Metronidazole (Flagyl) 500 Mg Tab, 500 MG PO TID for 4 Days, #12 TAB Prov:SUDHA JOYNER RESIDENT 02/26/25 Levofloxacin Hemihydrate (LEVOFLOXACIN) 750 Mg Tab, 1 TAB PO DAILY for 4 Days, #4 TAB Prov:SUDHA JOYNER RESIDENT 02/26/25 Reported Medications Empagliflozin (Jardiance) 10 Mg Tab, 10 MG PO DAILY, TAB 02/21/25 Information Source: Patient Mode of Arrival: EMS Timing: Days Duration: Since onset Prehospital treatment: None Quality: None Vomitus: Watery Stool: Normal Severity: Moderate Recent: Recent Surgery Recent Hx of: None Pain Location: None Modifying Factors: Nothing Associated sign and symptoms: Nausea, Vomiting Past Medical History PAST MEDICAL HISTORY: DM Surgical History: Cholecystectomy NEWS CORRESPONDENT History: Denies all NEWS CORRESPONDENT Hx Family History Family History: Unknown Social History Smoker: Non-Smoker Alcohol: Denies ETOH Use Drugs: Denies Drug Use Lives In: Home Constitutional: denies: chills, diaphoresis, fatigue, fever, malaise, sweats, weakness, others EENTM: denies: blurred vision, double vision, ear bleeding, ear discharge, ear drainage, ear pain, ear ringing, eye pain, eye redness, hearing loss, mouth pain, mouth swelling, nasal discharge, nose bleeding, nose congestion, nose pain, photophobia, tearing, throat pain, throat swelling, voice changes, others Respiratory: denies: cough, hemoptysis, orthopnea, SOB at rest, shortness of breath, SOB with excertion, stridor, wheezing, others Cardiovascular: denies: chest pain, dizzy spells, diaphoresis, Dyspnea on exertion, edema, irregular heart beat, left arm pain, lightheadedness, palpitations, PND, syncope, others Gastrointestinal: reports: nausea, vomiting; denies: abdomen distended, abdominal pain, blood streaked bowels, constipated, diarrhea, dysphagia, difficulty swallowing, hematemesis, melena, poor appetite, poor fluid intake, rectal bleeding, rectal pain, others Genitourinary: denies: abnormal vagina bleeding, burning, dyspareunia, dysuria, flank pain, frequency, hematuria, incontinence, pain, , vagina discharge, urgency, others Neurological: reports: dizziness; denies: fainting, headache, left sided numbness, left sided weakness, numbness, paresthesia, pre-existing deficit, right sided numbness, right sided weakness, seizure, speech problems, tingling, tremors, weakness, others Musculoskeletal: denies: back pain, gout, joint pain, joint swelling, muscle pain, muscle stiffness, neck pain, others Integumetry: denies: bruises, change in color, change in hair/nails, dryness, laceration, lesions, lumps, rash, wounds, others Allergic/Immunocompromised: denies: Difficulty Healing, Frequent Infections, Hives, Itching, others Hematologic/Lymphatic: denies: anemia, blood clots, easy bleeding, easy bruising, swollen glands, others Endocrine: denies: excessive hunger, excessive sweating, excessive thirst, excessive urination, flushing, intolerance to cold, intolerance to heat, unexplained weight gain, unexplained weight loss, others Psychiatric: denies: anxiety, bipolar disorder, depression, hopeless, panic disorder, schizophrenia, sleepless, suicidal, others All Other Systems: Reviewed and Negative Physical Exam General Appearance: Moderate Distress ([id number] distress at time of evaluation due to dizziness concerns.), Normal HEENT: Normal ENT Inspection, Pharynx Normal, TMs Normal Neck: Full Range of Motion, Non-Tender, Normal, Normal Inspection Respiratory: Chest Non-Tender, Lungs Clear, No Accessory Muscle Use, No R espiratory Distress, Normal Breath Sounds Cardiovascular: No Edema, No JVD, No Murmur, No Gallop, Normal Peripheral Pulses, Regular Rate/Rhythm Breast Exam: Deferred Gastrointestinal: No Organomegaly, Non Tender, No Pulsatile Mass, Normal Bowel Sounds, Soft Genitalia: Deferred Pelvic: Deferred Rectal: Deferred Extremities: No calf tenderness, Normal capillary refill, Normal inspection, Normal range of motion, Non-tender, No pedal edema Neurologic: Alert, No Motor Deficits, Normal Affect, Normal Mood, No Sensory Deficits Cerebellar Function: NOT DONE Reflexes: NOT DONE Skin: Dry, Normal Color, Warm Lymphatic: No Adenopathy Was a procedure done? Was a procedure done?: No GI differential Dx Differential Diagnosis: Gastritis/PUD, Gastroenteritis, Electrolyte Imbalance, Food Poisoning, Bacterial, Viral, Other (UTI, sepsis) X-Ray, Labs, Meds, VS Vital Signs Date Time Temp Pulse Resp B/P (MAP) Pulse Ox O2 Delivery O2 Flow Rate FiO2 02/26/25 18:05 98.9 52 19 100/63 (75) 98 98.9 02/26/25 15:58 56 16 96 Room Air* 0 21 02/26/25 15:57 98.0 56 14 114/58 (76) 99 98.0 Lab Test 02/26/25 16:28 02/26/25 15:34 02/26/25 15:33 Range/Units White Blood Count 9.7 4.4-10.8 10^3/uL Red Blood Count 4.43 4.0-5.20 10^6/uL Hemoglobin 13.8 12.2-16.2 g/dL Hematocrit 41.0 36.0-46.0 % Mean Corpuscular Volume 92.5 80.0-100.0 fL Mean Corpuscular Hemoglobin 31.2 28.0-32.0 pg Mean Corpuscular Hemoglobin Concent 33.7 32.0-36.0 g/dL Red Cell Distribution Width 12.8 11.8-14.3 % Platelet Count 153 140-450 10^3/uL Mean Platelet Volume 10.2 6.9-10.8 fL Neutrophils (%) (Auto) 64.2 37.0-80.0 % Lymphocytes (%) (Auto) 28.0 10.0-50.0 % Monocytes (%) (Auto) 6.8 0.0-12.0 % Eosinophils (%) (Auto) 0.3 0.0-7.0 % Basophils (%) (Auto) 0.7 0.0-2.0 % Neutrophils # (Auto) 6.3 1.6-8.6 10 ^3/uL Lymphocytes # (Auto) 2.7 0.4-5.4 10 ^3/uL Monocytes # (Auto) 0.7 0-1.3 10 ^3/uL Eosinophils # (Auto) 0 0-0.8 10 ^3/uL Basophils # (Auto) 0.1 0-0.2 10 ^3/uL Nucleated Red Blood Cells 0.1 % Sodium Level 146 H 136-145 mmol/L Potassium Level 3.1 L 3.5-5.1 mmol/L Chloride Level 110 H 98-107 mmol/L Carbon Dioxide Level 26 20-31 mmol/L Anion Gap 10 5-15 Blood Urea Nitrogen 11 9-23 mg/dL Creatinine 0.73 0.550-1.02 mg/dL Glomerular Filtration Rate Calc 104 >90 mL/min BUN/Creatinine Ratio 15.1 10.0-20.0 Serum Glucose 115 H 74-106 mg/dL Calcium Level 8.9 8.7-10.4 mg/dL Total Bilirubin 0.5 0.2-1.0 mg/dL Aspartate Amino Transferase (AST) 29 13-40 U/L Alanine Aminotransferase (ALT) 53 H 7-40 U/L Alkaline Phosphatase 84 46-116 U/L Total Protein 7.1 5.7-8.2 g/dL Albumin 4.0 3.2-4.8 g/dL Lipase 41 12-53 U/L Urine Color Yellow Yellow Urine Clarity Clear Clear Urine pH 5.5 5.0-9.0 Urine Specific [place] 1.025 1.001-1.035 Urine Protein Negative Negative Urine Ketones 1+ H Negative Urine Blood Negative Negative /uL Urine Nitrite Negative Negative Urine Bilirubin Negative Negative Urine Urobilinogen Normal Negative mg/dL Urine Leukocyte Esterase 2+ Negative /uL Urine RBC 8 0 - 4 /hpf Urine Microscopic WBC 10 H 0-5 /HPF Urine Squamous Epithelial Cells Few <5 /hpf Urine Calcium Oxalate Crystals Few None Seen Urine Bacteria None seen None Seen /hpf Urine Mucus Few None Seen Urine Glucose Normal Normal mg/dL POC Glucose 103 70-106 mg/dl Current Medications Medications (Trade) Dose Ordered Sig/Mague Route Start Time Stop Time Status Last Admin Ondansetron HCl (Zofran Po) 4 mg ONCE ONCE PO 02/26/25 15:45 02/26/25 15:46 DC 02/26/25 15:56 X-Ray, Labs, Meds, VS Comment All studies performed the ED were evaluated by me personally. Serum studies were unremarkable for any systemic concerns. UTI was noted on patient's urinalysis. Patient was given 1st dose of antibiotics tonight prior to discharge. Advised patient utilize antibiotics as directed until completion as well as additional medication as needed. Good hydration and healthy nutrition throughout. Time of 1ST Reevaluation: 20:14 Reevaluation 1ST: Improved Consultation: PCP Patient Education/Counseling: Diagnosis, Treatment Family Education/Counseling: Diagnosis, Treatment, No Family Present Departure 1 Departure Time of Disposition: 20:15 Impression: Primary Impression: Urinary tract infection Disposition: HOME / SELF CARE / HOMELESS Condition: Stable Additional Instructions: Advise utilizing antibiotics as directed until completion as well as additional medication as needed. Good hydration and healthy nutrition throughout. e-Prescriptions Ondansetron Odt 4MG Tab (ZOFRAN PO) 4 Mg Tb 4 MG PO Q6HP PRN, #15 TAB ODT TAB-DISSOLVE IN MOUTH, THEN SWALLOW Prov: WAQAS IVY PAC 02/26/25 Nitrofurantoin Monohydrate Mac (Macrobid) 100 Mg Cap 100 MG PO BID for 5 Days, #10 CAP Prov: WAQAS IVY PAC 02/26/25 Discharged With: Self, Friend Critical Care Note Critical Care Time?: No Stability Stability form required: No Heart Score Heart Score: Heart Score Response (Comments) Value History N/A 0 EKG N/A 0 Age N/A 0 Risk Factors N/A 0 Troponin N/A 0 Total 0 I personally scribed for WAQAS IVY PAC ([email or web address]) on 02/26/25 at 16:36. Electronically submitted by Astrid Howell ([email or web address]). I personally scribed for WAQAS IVY PAC ([email or web address]) on 02/26/25 at 16:48. Electronically submitted by Astrid Howell ([email or web address]). WAQAS IVY PAC February 26, 2025 16:36
[2025-02-26 16:59] LABS: Basophils # (auto) 0.1 10 ^3/uL (0-0.2); Basophils % (auto) 0.7 % (0.0-2.0); Eosinophils # (auto) 0 10 ^3/uL (0-0.8); Eosinophils % (auto) 0.3 % (0.0-7.0); Hemoglobin 13.8 g/dL (12.2-16.2); Lymphocytes # (auto) 2.7 10 ^3/uL (0.4-5.4); Mean Corpuscular Hemoglobin 31.2 pg (28.0-32.0); Mean Corpuscular Hgb Conc. 33.7 g/dL (32.0-36.0); Mean Corpuscular Volume 92.5 fL (80.0-100.0); Monocytes # (auto) 0.7 10 ^3/uL (0-1.3); Monocytes % (auto) 6.8 % (0.0-12.0); Neutrophils # (auto) 6.3 10 ^3/uL (1.6-8.6); Neutrophils % (auto) 64.2 % (37.0-80.0); Nucleated Red Blood Cells % 0.1 %; Platelet Count (auto) 153 10^3/uL (140-450); Red Blood Cells 4.43 10^6/uL (4.0-5.20); Red Cell Distribution Width 12.8 % (11.8-14.3); White Blood Cell 9.7 10^3/uL (4.4-10.8)
[2025-02-26 17:11] LABS: Alkaline Phosphatase 84 U/L (46-116); Anion Gap 10 (5-15); Aspartate Aminotransferase 29 U/L (13-40); BUN/Creatinine Ratio 15.1 (10.0-20.0); Bilirubin, Total 0.5 mg/dL (0.2-1.0); Blood Urea Nitrogen 11 mg/dL (9-23); Calcium 8.9 mg/dL (8.7-10.4); Carbon Dioxide 26 mmol/L (20-31); Lipase 41 U/L (12-53); Total Protein 7.1 g/dL (5.7-8.2)
[2025-02-26 18:05] LABS: Alanine Aminotransferase 53 U/L (7-40); Chloride 110 mmol/L (98-107); Glucose 115 mg/dL (74-106); Potassium 3.1 mmol/L (3.5-5.1); Sodium 146 mmol/L (136-145)
[2025-02-26] MEDS ORDERED: POTA-36 PO (18:38)
[2025-02-26 19:40] LABS: Urine Bacteria None Seen /hpf (None Seen)
[2025-02-26 20:02] LABS: Urine Blood Negative /uL (Negative); Urine Clarity Clear (Clear); Urine Color Yellow (Yellow); Urine Mucus FEW (None Seen); Urine Protein, UAD Negative (Negative); Urine Specific Gravity 1.025 (1.001-1.035); Urine Squamous Epithelial Cell FEW /hpf (<5); Urine Urobilinogen Normal (Negative); Urine WBC 10 /HPF (0-5); Urine pH 5.5 (5.0-9.0)
[2025-02-26] MEDS ORDERED: NITR-87 PO (20:16)
[2025-02-26] MEDS ORDERED: ZOFR4T PO (20:16)
[2025-02-26 22:00] VITALS: BP 115/66; PULSE 57; RESP 16; TEMP 99.6; O2SAT 98
[2025-02-26] MEDS: NITROFURANTOIN 100 mg CAP PO ONE (22:09)
== END 2025-02-26 22:13 | disposition home or self-care (01) ==
LOC: ER 15:24
DX: N39.0 Urinary tract infection, site not specified (principal); E86.0 Dehydration; E11.9 Type 2 diabetes mellitus without complications; Z79.84 Long term (current) use of oral hypoglycemic drugs; Z79.899 Other long term (current) drug therapy; Z90.49 Acquired absence of other specified parts of digestive tract
CPT/HCPCS: 36415; 80053; 81001; 82947; 83690; 85025; 99283; Q0162; 82962